=== PATIENT | female | born 1970 | race Caucasian/White ===

== ENCOUNTER 2024-11-21 13:12 | Outpatient (CLI) | payer OTHER, SELFPAY ==
--- NOTE | ~2024-11-21 | XR_ITS ---
Right Shoulder Technique: AP and scapular Y views were obtained. Clinical History: Pain Findings: No fracture or dislocation is seen. Osseous alignment is anatomic. The glenohumeral and acr omioclavicular joint spaces are preserved. Extensive spinal fixation hardware noted. Impression: Unremarkable right shoulder radiographs. Reviewed, dictated and finalized at [facility]. Impression: Unremarkable right shoulder radiographs.
--- OUTSIDE RECORDS SUMMARY | 2024-11-21 13:20 | XMS_ITS | Encounter Summary ---
Author Organization [facility] - [facility] Address [address] [place] [id number] Care Team Providers Care Manager Grant Name Role Phone Promise Stafford NP Primary Care Provider Ena Pantoja Primary Care Pr ovider Guillermo Merlos MD Primary Care Provider [phone] Encounter Details Date Type Department Care Team (Late st Contact Info) Description 06/07/2018 Abstract [facility] Medical Group Multispecialty Care - [facility] [address] [facility], [address] [place] [address] Britton Moseley MD Social History Tobacco Use Types Packs/Day Years Used Date Smoking Tobacco: Every Day Cigarettes 1.5 30 Smokeless Tobacco: Never Alcohol Use Standard Drinks/Week Comments No 0 (1 standard drink = 0.6 oz pur e alcohol) AUDIT-C Answer Date Recorded Frequency of Alcohol Consumption Never 06/07/2018 Average Number of Drinks Not on file 018 Frequency of Binge Drinking Not on file 03/2018 Comments Unknown Sex and Gender Information Value Date Recorded Sex Assigned at Not on file Legal Sex Female 8:55 PM CDT Gender Identity Not on file Sexual Orientation Not on file documented as of this encounter Functional Status documented as of this encounter Plan of Treatment Not on file documented as of this encounter Visit Diagnoses Not on filedocumented in this encounter Additional Health Concerns Infection Onset Date Last Indicated Resolved Time COVID-19 Rule Out 02/27/2021 02/27/2021 02/27/2021 6:44 AM CDT COVID-19 Rule Out 06/21/2024 06/21/2024 06/21/2024 8:17 AM 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
--- OUTSIDE RECORDS SUMMARY | 2024-11-21 13:20 | XMS_ITS | Encounter Summary ---
Author Organization [facility] Address [address] [place] [address] Care Team Providers Care Petroleum Geologist Name Role Phone Promise Stafford NP Primary Care Provider Ena Pantoja Primary Care Pr ovider Guillermo Merlos MD Primary Care Provider [phone] Encounter Details Date Type Department Care Team (Late st Contact Info) Description 08/04/2018 MyChart Message Enc [facility] Medical [facility] Family & Internal Medicine [address] [address] Promise Stafford, JAMARCUS Test Results Social History Tobacco Use Types Packs/Day Years Used Date Smoking Tobacco: Every Day Cigarettes 0.5 30 Smokeless Tobacco: Never Alcohol Use Standard [...] on file documented as of this encounter Plan of Treatment Not on file documented as of this encounter Visit Diagnoses Not on filedocumented in this encounter Additional Health Concerns Infection Onset Date Last Indicated Resolved Time COVID-19 Rule Out 02/27/2021 02/27/2021 02/27/2021 6:44 AM CDT COVID-19 Rule Out 06/21/2024 06/21/2024 06/21/2024 8:17 AM 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
--- OUTSIDE RECORDS SUMMARY | 2024-11-21 13:21 | XMS_ITS | Patient Health Record ---
Author Organization Formerly [facility] Address [address] [place] [address] Care Team Providers Care It Audit Manager Name Role Phone Guillermo Merlos Primary Care Provider Betina Mc Unavailable [phone] Shital Ramirez Unavailable [phone] Nick Gomez Unavailable [phone] Kiana Artis Unavailable [phone] Shanika Zimmerman Unavailable [phone] Allergies Allergen (clinical drug ingredient) Drug/Non Drug Allergy documented on EMR Reaction Allergy Type Onset Date Status tramadol Tramadol Unknown Drug Allergy Active Results Component Value Reference Range Notes HCV RNA by PCR, Qn Rfx Dona (Not yet reviewed by provider) Interpretation: Performing Lab:[employer], [address] [facility], Phone - [phone], Director - Gerardo Notes/Report: Hepatitis C Quantitation HCV Not Detected HCV log10 TNP Unable to calculate result since non-numeric result obtained for component test. Test Information: The quanti tative range of this assay is 15 IU/mL to 100 million IU/mL. HCV Genotype TNP Not indicated Lipid Panel* (Not yet review ed by provider) Interpretation: Performing Lab:[facility] [place], [address] [facility], Phone - [phone], Director - PhDVianey Notes/Report: Cholesterol, Total 257 100-199 mg/dL Triglycerides 88 0-149 mg/dL HDL Cholesterol 68 >39 mg/dL VLDL Cholesterol Ambrose 15 5-40 mg/dL LDL Chol Calc ([facility]) 174 0-99 mg/dL TSH Rfx on Abnormal to Free T4 (Not yet reviewed by provider) Interpretation: Performing Lab[facility] [address] [facility], Phone - [phone], Director - [facility] Notes/Report: TSH 2.940 0.450-4.500 uIU/mL CBC With Differential/Platel et* (Not yet reviewed by provider) Interpretation: Performing Lab:[facility] [address] [facility], Phone - [phone], Director - [facility] Notes/Report: WBC 5.8 3.4-10.8 x10E3/uL RBC 4.49 3.77-5.28 x10E6/uL Hemoglobin 13.6 11.1-15.9 g/dL Hematocrit 41.5 34.0-46.6 % MCV 92 79-97 fL MCH 30.3 26.6-33.0 pg MCHC 32.8 31.5-35.7 g/dL RDW 12.5 11.7-15.4 % Platelets 275 150-450 x10E3/uL Neutrophils 44 Not Estab. % Lymphs 43 Not Estab. % Monocytes 8 Not Estab. % Eos 4 Not Estab. % Basos 1 Not Estab. % Neutrophils (Absolute) 2.5 1.4-7.0 x10E3/uL Lymphs (Absolute) 2.5 0.7-3.1 x10E3/uL Monocytes(Absolute) 0.5 0.1-0.9 x10E3/uL Eos (Absolute) 0.2 0.0-0.4 x10E3/uL Baso (Absolute) 0.0 0.0-0.2 x10E3/uL Immature Granulocytes 0 Not Estab. % Immature Grans (Abs) 0.0 0.0-0.1 x10E3/uL CMP 14 Comprehensive Metabol ic Panel* (Not yet reviewed by provider) Interpretation: Performing Lab:[facility] [address] [facility], Phone - [phone], Director - [facility] Notes/Report: Glucose TNP Test not performed. Serum was in contact with cells when received which will make the result inaccurate. BUN 14 6-24 mg/dL Creatinine 0.68 0.57-1.00 mg/dL eGFR 105 >59 mL/min/1.73 BUN/Creatinine Ratio 21 9-23 Sodium 140 134-144 mmol/L Potassium TNP Test not performed. Serum was in contact with cells when received which will make the result inaccurate. Chloride 103 96-106 mmol/L Carbon Dioxide, Total 24 20-29 mmol/L Calcium 9.9 8.7-10.2 mg/dL Protein, Total 7.2 6.0-8.5 g/dL Albumin 4.4 3.8-4.9 g/dL Globulin, Total 2.8 1.5-4.5 g/dL Bilirubin, Total <0.2 0.0-1.2 mg/dL Alkaline Phosphatase 112 44-121 IU/L AST (SGOT) 32 0-40 IU/L ALT (SGPT) 22 0-32 IU/L 12 Panel Urine Drug Screen Reviewed date:07/01/2024 11:37:04 AM Interpretation: Performing Lab: Notes/Report: THC neg YESENIA neg MOP (OPI) neg AMP POS MET neg BAR neg BZO neg MDMA neg MTD neg OXY neg PCP neg BUP neg TSH Rfx on Abnormal to Free T4 Reviewed date:01/01/2024 04:01:15 PM Interpretation: Performing Lab:[facility] [place], [address] [facility], Phone - [phone], Director - [facility] Notes/Report: TSH 1.570 0.450-4.500 uIU/mL Request Problem TNP Please refer to the following specimen for additional lab results. TEST: [id number] HCV RNA by PCR, Qn Rfx Dona [id number] HIV Ab/p24 Ag with Reflex [id number] Hemoglobin A1c 787045 Hepatitis B Surf Ab Quant 247493 HBsAg Screen Specimen# [id number] CMP 14 Comprehensive Metabol ic Panel* Reviewed date:01/01/2024 04:01:15 PM Interpretation: Performing Lab:[facility] [place], [address] [employer] [employer], [place], Phone - [phone], Director - [facility] Notes/Report: Glucose 84 70-99 mg/dL BUN 11 6-24 mg/dL Creatinine 0.64 0.57-1.00 mg/dL eGFR 107 >59 mL/min/1.73 BUN/Creatinine Ratio 17 9-23 Sodium 138 134-144 mmol/L Potassium 4.4 3.5-5.2 mmol/L Chloride 98 96-106 mmol/L Carbon Dioxide, Total 26 20-29 mmol/L Calcium 10.1 8.7-10.2 mg/dL Protein, Total 7.5 6.0-8.5 g/dL Albumin 4.5 3.8-4.9 g/dL Globulin, Total 3.0 1.5-4.5 g/dL A/G Ratio 1.5 1.2-2.2 Bilirubin, Total 0.2 0.0-1.2 mg/dL Alkaline Phosphatase 125 44-121 IU/L AST (SGOT) 84 0-40 IU/L ALT (SGPT) 107 0-32 IU/L Lipid Panel* Reviewed date:01/01/2024 04:01:15 PM Interpretation: Performing Lab:[address], Phone - [phone], Director - [facility] Notes/Report: Cholesterol, Total 227 100-199 mg/dL Triglycerides 97 0-149 mg/dL HDL Cholesterol 55 >39 mg/dL VLDL Cholesterol Ambrose 17 5-40 mg/dL LDL Chol Calc ([facility]) 155 0-99 mg/dL Treponema pallidum Antibodie s Reviewed date:01/01/2024 04:01:15 PM Interpretation: Performing Lab:[address], Phone - [phone], Director - [facility] Notes/Report: Treponema pallidum Antibodies Non Reactive Non Reactive Hemoglobin A1c* Reviewed date:01/01/2024 04:01:16 PM Interpretation: Performing Lab:[address], Phone - [phone], Director - [facility] Notes/Report: Test(s) 217492-Zpvxytwzj C Genotype was developed and its performance characteristics determined by [facility]. It has not been cleared or approved by the Food and Drug Administration. Hemoglobin A1c 5.6 4.8-5.6 % . Prediabetes: 5.7 - 6.4 Diabetes: >6.4 Glycemic control for adults with diabetes: <7.0 Lipid Panel* Reviewed date:01/01/2024 04:01:16 PM Interpretation: Performing Lab:[facility], Phone - [phone], Director - [facility] Notes/Report: Test(s) 289917-Oifsfyola C Genotype was developed and its performance characteristics determined by [facility]. It has not been cleared or approved by the Food and Drug Administration. Cholesterol, Total TNP Please refer to the following specimen for additional lab results. Specimen# [id number] Triglycerides TNP Test not perfo rmed HDL Cholesterol TNP Test not per formed VLDL Cholesterol Ambrose TNP Unable to calculate result since non-numeric result obtained for component test. Treponema pallidum Antibodie s Reviewed date:01/01/2024 04:01:16 PM Interpretation: Performing Lab:[facility], Phone - [phone], Director - [facility] Notes/Report: Test(s) 809753-Xgeqcdwyp C Genotype was developed and its performance characteristics determined by [facility]. It has not been cleared or approved by the Food and Drug Administration. Treponema pallidum Antibodies TNP Please refer to the following specimen for additional lab results. Specimen# [id number] HIV Screen *HIV 1, 2 Ab, p24 Ag (201562) Reviewed date:01/01/2024 04:01:16 PM Interpretation: Performing Lab:[address], Phone - [phone], Director - [facility] Notes/Report: Test(s) 952077-Fxfzveycy C Genotype was developed and its performance characteristics determined by [facility]. It has not been cleared or approved by the Food and Drug Administration. HIV Ab/p24 Ag Screen Non Reactive Non Reactive HIV Negative HIV-1/HIV-2 antibodies and HIV-1 p24 antigen were NOT detected. There is no laboratory evidence of HIV infection. HCV RNA by PCR, Qn Rfx Dona Reviewed date:01/01/2024 04:01:16 PM Interpretation: Performing Lab:[facility], Phone - [phone], Director - [facility] Notes/Report: Test(s) 108532-Yglvrmhto C Genotype was developed and its performance characteristics determined by [facility]. It has not been cleared or approved by the Food and Drug Administration. Test(s) 379145-Wenqmnslv C Genotype was developed and its performance characteristics determined by [facility]. It has not been cleared or approved by the Food and Drug Administration. Hepatitis C Quantitation [id number] HCV log10 6.690 Test Information: The quanti tative range of this assay is 15 IU/mL to 100 million IU/mL. HCV Genotype To be performed on this specimen. Hepatitis C Genotype 1a Hepatitis B Surf Ab Quant* Reviewed date:01/01/2024 04:01:16 PM Interpretation: Performing Lab:[facility] [address] [place] [address], Phone - [phone], Director - [facility] Notes/Report: Test(s) 601536-Blkumdgnu C Genotype was developed and its performance characteristics determined by [facility]. It has not been cleared or approved by the Food and Drug Administration. Hepatitis B Surf Ab Quant <3.1 Immuni ty>9.9 mIU/mL Status of Immunity Anti-HBs Level Inconsistent with Immunity 0.0 - 9.9 Consistent with Immunity >9.9 Effective January 28, 2024 the reference interval will be changing to: Immunity >10 Hepatitis B Surface Antigen (HBsAg Screen) Reviewed date:01/01/2024 04:01:16 PM Interpretation: Performing Lab:[facility], Phone - [phone], Director - [facility] Notes/Report: Test(s) 719244-Dqxgvvbte C Genotype was developed and its performance characteristics determined by [facility]. It has not been cleared or approved by the Food and Drug Administration. HBsAg Screen Negative Negative Request Problem TNP Please refer to the following specimen for additional lab results. TEST: 824140 Comp. Metabolic Panel (14) 806974 Lipid Panel 115372 Treponema pallidum Antibodies 027900 TSH Rfx on Abnormal to Free T4 Specimen# [id number] CMP 14 Comprehensive Metabol ic Panel* Reviewed date:01/01/2024 04:01:16 PM Interpretation: Performing Lab[facility] [address] [facility], Phone - [phone], Director - [facility] Notes/Report: Test(s) 040080-Swfotlkkh C Genotype was developed and its performance characteristics determined by [facility]. It has not been cleared or approved by the Food and Drug Administration. Glucose TNP Please refer to the following specimen for additional lab results. Specimen# [id number] BUN TNP Test not perfor med Creatinine TNP Test not perfor med Sodium TNP Test not perfor med Potassium TNP Test not perfor med Chloride TNP Test not perfor med Carbon Dioxide, Total TNP Test n ot performed Calcium TNP Test not perfor med Protein, Total TNP Test not perf ormed Albumin TNP Test not perfor med Bilirubin, Total TNP Test not pe rformed Alkaline Phosphatase TNP Test no t performed AST (SGOT) TNP Test not perfor med ALT (SGPT) TNP Test not perfor med TSH Rfx on Abnormal to Free T4 Reviewed date:01/01/2024 04:01:15 PM Interpretation: Performing Lab[facility], Phone - [phone], Director - [facility] Notes/Report: Test(s) 024255-Phritdaie C Genotype was developed and its performance characteristics determined by [facility]. It has not been cleared or approved by the Food and Drug Administration. TSH TNP Please refer to the following specimen for additional lab results. Specimen# [id number] Hepatic Function Panel (7)* Reviewed date:03/06/2024 03:13:30 PM Interpretation: Performing Lab:[facility], Phone - [phone], Director - [facility] Notes/Report: Protein, Total 7.9 6.0-8.5 g/dL Albumin 4.6 3.8-4.9 g/dL Bilirubin, Total 0.5 0.0-1.2 mg/dL Bilirubin, Direct 0.15 0.00-0.40 mg/dL Alkaline Phosphatase 139 44-121 IU/L AST (SGOT) 156 0-40 IU/L ALT (SGPT) 195 0-32 IU/L Lipid Panel* Reviewed date:03/06/2024 03:13:06 PM Interpretation: Performing Lab:[facility], Phone - [phone], Director - Gerardo Notes/Report: Cholesterol, Total 178 100-199 mg/dL Triglycerides 67 0-149 mg/dL HDL Cholesterol 58 >39 mg/dL VLDL Cholesterol Ambrose 13 5-40 mg/dL LDL Chol Calc ([facility]) 107 0-99 mg/dL Pap IG Aptima HPV Age Gdln, +CtNgTv (348703) Reviewed date:02/14/2024 08:08:27 AM Interpretation:Abnormal Performing Lab:[facility], [address] [facility], Phone - [phone], Director - Marcelino Notes/Report: Clinical Information:[id number] Clinical Information:[id number] Age Gdln ACOG Testing 30-65 DIAGNOSIS: NEGATIVE FOR INTRAEPITHELIAL LESION OR MALIGNANCY. CELLULAR CHANGES ASSOCIATED WITH INFLAMMATION ARE PRESENT. Specimen adequacy: Satisfactory for evaluation. Endocervical and/or squamous metaplastic cells (endocervical component) are present. Clinician provided ICD10: Z0 1.419 Performed by: India Chavez, [employer] Stringer (ASCP) . . Note: The Pap smear is a screening test designed to aid in the detection of premalignant and malignant conditions of the uterine cervix. It is not a diagnostic procedure and should not be used as the sole means of detecting cervical cancer. Both false-positive and false-negative reports do occur. . Test Methodology: This liquid based ThinPrep(R) pap test was screened with the use of an image guided system. HPV Aptima Negative Negative This nucleic acid amplification test detects fourteen high-risk HPV types (16,18,31,33,35,39,45,51, 52,56,58,59,66,68) without differentiation. HPV Genotype Reflex Criteria not met, HPV Genotype not performed. Chlamydia, Nuc. Acid Amp Negative Negative Gonococcus, Nuc. 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 Clinical Notes [facility], [address], [place] [address], , Referral Priority Routine Medications Medication SIG (Take, Route, Frequency, Duration) Notes Start Date End Date Status Citalopram Hydrobromide 20 MG 1 tablet Orally Once a day for 30 days Active Vyvanse 70 MG 1 capsule in the mor citlaly Orally Once a day for 30 days 11/20/2024 Active Naproxen 500 MG 1 tablet with food or milk as needed Orally every 12 hrs for 30 days As needed joint pain 11/07/2024 Active Social History Tobacco Use: Social History Observation Description Date Details (start date - stop date) Current Smoker NA - NA Sex Assigned At : Social History Observation Description Sex Assigned At Female Dont use, Tobacco Use/Smoking Question Answer Notes Are you a current every day smoker Additional Findings: Tobacco User Moderate cigar ette smoker (10-19 cigs/day) Tobacco Control (Standard) Question Answer Notes Tobacco use: Current smoker How often do you smoke cigarettes? Every day How many cigarettes a day do you smoke? 6-10 Section Notes: Reviewed PDMP, no concerns n oted. Reviewed PDMP, no concerns n oted. Reviewed PDMP, no concerns n oted. Reviewed PDMP, no concerns n oted. Reviewed PDMP, no concerns n oted. Reviewed PDMP, no concerns n oted. Reviewed PDMP, no concerns n oted. Reviewed PDMP, no concerns n oted. Reviewed PDMP, no concerns n oted. Reviewed PDMP, no concerns n oted. Reviewed PDMP, no concerns n oted. Reviewed PDMP, no concerns n oted. Reviewed PDMP, no concerns noted. Reviewed PDMP, no concerns noted. Reviewed PDMP, no concerns n oted. Reviewed PDMP, no concerns n oted. Reviewed PDMP, no concerns n oted. Problems Problem Type SNOMED Code ICD Code Onset Dates Problem Status W/U Status Risk Notes Problem Tobacco user (289759227) Nicotine dependence, unspecified, uncomplicated (F17.200) Active confirmed Problem Borderline personality disorder (34606490) Borderline personality disorder (F60.3) Active confirmed Problem 79730075 Mood disorder (F39) 2016 Active confirmed r/o bipolar disorder Problem 69648175 Anxiety (F41.9) Active confirmed Problem Attention deficit disorder (38717396) ADD (attention deficit disorder) (F90.0) Active confirmed Problem Hepatitis C (64052741) Hepatitis C (B19.20) Active confirmed Problem Thyroid nodule (386438932) Thyroid nodule (E04.1) 2023 Active confirmed Problem Recurrent major depression (06130883) Major depression, recurrent (F33.9) Active confirmed Problem 63810701 Major depressive disorder with single episode, remission status unspecified (F32.9) 2016 Active confirmed Problem 03429154 Bipolar affectiv e disorder, remission status unspecified (F31.9) 2016 Active confirmed Problem 84768115 Situational depression (F43.21) Active confirmed Problem 241347043 ADD (attention deficit disorder) (F98.8) Active confirmed prior diagonsis from history Problem Hypercholesterolemia (00638331) Hypercholesterolem ia (E78.00) Active confirmed Problem Carpal tunnel syndrome (93410470) Carpal tunnel syndrome on both sides (G56.03) Active confirmed Vital Signs Heart Rate 93 /min 11/07/2024 Temperature 98.2 degrees Fahrenheit 11/07/2024 Respiratory Rate 16 /min 11/07/2024 Oximetry 98 % 11/07/2024 Blood pressure diastolic 68 mm Hg 11/07/2024 Height 62 in 11/07/2024 Blood pressure systolic 112 mm Hg 11/07/2024 Weight 135.6 lbs 11/07/2024 BMI 24.8 kg/m2 11/07/2024 Encounters Encounter Location Date Provider Diagnosis [address] [place] [address] 11/10/2024 Guillermo Merlos [facility] [place] [address] 12/21/2023 Guillermo Merlos Thyroid nodule E04.1 ; Hepatitis C B19.20 ; Right shoulder pain M25.511 ; Hypercholesterolemia E78.00 ; Exposure to potential infection Z20.9 ; Menopause Z78.0 ; Tinea B35.9 ; Onychocryptosis L60.0 ; Colon polyps K63.5 ; Breast cancer screening Z12.39 ; Cervical cancer screening Z12.4 ; Metabolic syndrome E88.810 and Carpal tunnel syndrome on both sides G56.03 [place] [address] [place] [address] 01/04/2024 Guillermo Merlos Hypercholesterolemia E78.00 and Hepatitis C B19.[address] [place] [address] 01/10/2024 Betina Mc Major depression, recurrent F33.9 ; Borderline personality disorder F60.3 ; Anxiety F41.9 and ADD (attention deficit disorder) F90.0 [place] [address] [place] [address] 02/01/2024 Guillermo Merlos Hypercholesterolemia E78.00 ; Hepatitis C B19.20 and Thyroid nodule E04.1 [place] [address] [place] [address] 02/11/2024 Shanika Zimmerman Well woman exam with routine gynecological exam Z01.419 [place] [address] [place] [address] 02/11/2024 Shital Ramirez [place] [address] [place] [address] 05/20/2024 Betina Mc Major depression, recurrent F33.9 ; Borderline personality disorder F60.3 ; Anxiety F41.9 and ADD (attention deficit disorder) F90.0 [place] [address] [place] [address] 07/01/2024 Betina Mc Major depression, recurrent F33.9 ; Borderline personality disorder F60.3 ; Anxiety F41.9 and ADD (attention deficit disorder) F90.0 [facility] [place] [address] 10/21/2024 Betina Mc Major depression, recurrent F33.9 ; Borderline personality disorder F60.3 ; Anxiety F41.9 and ADD (attention deficit disorder) F90.0 [facility] [address] [place] [address] 11/07/2024 Guillermogustavo Colonner Lateral epicondyliti s of right elbow M77.11 ; Right shoulder pain M25.511 ; Thyroid nodule E04.1 ; Breast cancer screening Z12.39 ; Hepatitis C B19.20 ; Hypercholesterolemia E78.00 and Patellofemoral arthralgia of right knee M25.[address] [place] [address] 11/28/2023 Betina Mc [address] [address] 12/25/2023 Betina Mc ADD (attention defic it disorder) F90.[address] [address] 02/07/2024 Nick Gomez ADD (attention defic it disorder) F90.[address] [place] [address] 02/14/2024 Shanika Zimmerman Trichomoniasis A59.[address] [place] [address] 03/04/2024 Nick Gomez ADD (attention defic it disorder) F90.0 and Major depression, recurrent F33.[address] [address] 04/02/2024 Kiana Artis Major depression, recurrent F33.9 and ADD (attention deficit disorder) F90.0 [facility] [address] [address] 04/29/2024 Betina Mc Major depression, recurrent F33.9 and ADD (attention deficit disorder) F90.[address] [address] 05/15/2024 [facility] [address] [address] 06/06/2024 [place] [address] [address] 06/24/2024 Betina Mc Major depression, recurrent F33.9 and ADD (attention deficit disorder) F90.[address] [address] 08/04/2024 [facility] [address] [place] [address] 08/14/2024 Betina Mc ADD (attention defic it disorder) F90.0 [facility] [address] [place] [address] 09/11/2024 [facility] [address] [place] [address] 09/11/2024 Betina Mc ADD (attention defic it disorder) F90.0 and Major depression, recurrent F33.[address] [address] 10/14/2024 Betina Mc ADD (attention defic it disorder) F90.[address] [address] 10/22/2024 Betina Mc ADD (attention defic it disorder) F90.[address] [address] 11/20/2024 Betina Mc ADD (attention defic it disorder) F90.0 Assessments Encounter Date Diagnosis (ICD Code) Assessment Notes Treatment Notes Treatment Clinical Notes Section Notes 11/07/2024 Lateral epicondyliti s of right elbow (ICD-10 - M77.11) stretches, heat, wrap, nsaid 11/07/2024 Right shoulder pain (ICD-10 - M25.511) discussed yo chi for chronic pain 11/20/2024 ADD (attention defic it disorder) (ICD-10 - F90.0) 01/10/2024 Major depression, recurrent (ICD-10 - F33.9) Client reports has been given GI referral- client to make GI provider aware of current MH regimen to see if they suggest any changes while doing treatment. Client v/u and agreement to this plan. Discussed possible decrease in both medications may be warranted. Client reports understanding. 12/25/2023 ADD (attention defic it disorder) (ICD-10 - F90.0) 04/02/2024 Major depression, recurrent (ICD-10 - F33.9) 05/20/2024 Major depression, recurrent (ICD-10 - F33.9) Changing from Lexapro to Celexa- discussed to decrease lexapro by taking half a tablet for 3 days then start Celexa at half a tablet for 2 days then increase to a full tablet. 08/14/2024 ADD (attention defic it disorder) (ICD-10 - F90.0) 09/11/2024 ADD (attention defic it disorder) (ICD-10 - F90.0) 10/14/2024 ADD (attention defic it disorder) (ICD-10 - F90.0) 10/21/2024 Major depression, recurrent (ICD-10 - F33.9) [place] agreement to continue current regimen. 10/22/2024 ADD (attention defic it disorder) (ICD-10 - F90.0) 12/21/2023 Hepatitis C (ICD-10 - B19.20) 12/21/2023 Thyroid nodule (ICD- 10 - E04.1) 01/04/2024 Hepatitis C (ICD-10 - B19.20) 01/04/2024 Hypercholesterolemia (ICD-10 - E78.00) 02/14/2024 Trichomoniasis (ICD- 10 - A59.9) 03/04/2024 ADD (attention defic it disorder) (ICD-10 - F90.0) 07/01/2024 Major depression, recurrent (ICD-10 - F33.9) Changing from Lexapro to Celexa- discussed to decrease lexapro by taking half a tablet for 3 days then start Celexa at half a tablet for 2 days then increase to a full tablet. 06/24/2024 Major depression, recurrent (ICD-10 - F33.9) 04/29/2024 Major depression, recurrent (ICD-10 - F33.9) 02/11/2024 Well woman exam with routine gynecological exam (ICD-10 - Z01.419) 02/07/2024 ADD (attention defic it disorder) (ICD-10 - F90.0) 02/01/2024 Hepatitis C (ICD-10 - B19.20) 02/01/2024 Hypercholesterolemia (ICD-10 - E78.00) 02/01/2024 Thyroid nodule (ICD- 10 - E04.1) 04/29/2024 ADD (attention defic it disorder) (ICD-10 - F90.0) 06/24/2024 ADD (attention defic it disorder) (ICD-10 - F90.0) 07/01/2024 Borderline personali ty disorder (ICD-10 - F60.3) Continue counseling 11/07/2024 Thyroid nodule (ICD- 10 - E04.1) 03/04/2024 Major depression, recurrent (ICD-10 - F33.9) 04/02/2024 ADD (attention defic it disorder) (ICD-10 - F90.0) 12/21/2023 Right shoulder pain (ICD-10 - M25.511) 10/21/2024 Borderline personali ty disorder (ICD-10 - F60.3) Continue counseling 09/11/2024 Major depression, recurrent (ICD-10 - F33.9) 05/20/2024 Borderline personali ty disorder (ICD-10 - F60.3) Continue counseling 01/10/2024 Borderline personali ty disorder (ICD-10 - F60.3) Continue counseling 01/10/2024 Anxiety (ICD-10 - F41.9) Continue lexapro, client reports coping well, encouraged counseling 11/07/2024 Breast cancer screening (ICD-10 - Z12.39) 05/20/2024 Anxiety (ICD-10 - F41.9) Starting Celexa, client reports coping well, encouraged counseling 10/21/2024 Anxiety (ICD-10 - F41.9) Encouraged counseling Continue coping mechanisms 12/21/2023 Hypercholesterolemia (ICD-10 - E78.00) 07/01/2024 Anxiety (ICD-10 - F41.9) Encouraged counseling Continue coping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
--- OUTSIDE RECORDS SUMMARY | 2024-11-21 13:21 | XMS_ITS ---
Author Organization [facility] Address [address] [place] [address] Care Team Providers Care Broadcast News Producer Name Role Phone Guillermo Merlos Primary Care Provider Betina Mc [phone] REASON FOR VISIT refills Medications Medication SIG (Take, Route, Frequency, Duration) Notes Start Date End Date Status Vyvanse 70 MG 1 capsule in the mor citlaly Orally Once a day for 30 days 11/20/2024 Active Social History Sex Assigned At : Social History Observation Description Sex Assigned At Female Encounters Encounter Location Date Provider Diagnosis [address] [address] 11/20/2024 Betina Mc ADD (attention deficit disorder) F90.0 Assessments Encounter Date Diagnosis (ICD Code) Assessment Notes Treatment Notes Treatment Clinical Notes Section Notes 11/20/2024 ADD (attention deficit disorder) (ICD-10 - F90.0) Plan Of Treatment Medication Medication Name Sig Start Date Stop Date Notes Vyvanse 70 MG 1 capsule in the mor citlaly Orally Once a day for 30 days 11/20/2024 Progress Notes * Todd HENNINGOB: 3 (53 yo F)Acc No.[id number]:11/20/2024 Patient: Radha Brandy GARCIA :1970 A ge:53 Y S ex:Female Address:[address] [place] [address], [address], [address] * Refills Refill Vyvanse Capsule, 70 MG, Orally, 30 Capsule, 1 capsule in the morning, Once a day, 30 days, Refills=0 * true * Date: Generated for Kim gamez/Sarika/Amarjit on: 0 11/21/2024 01:20 PM CDT
--- OUTSIDE RECORDS SUMMARY | 2024-11-21 13:21 | XMS_ITS | Clinical Summary ---
Author Organization [facility] Address [address] [place] [address] Care Team Providers Care Health Evaluator Name Role Phone Guillermo Merlos MD Primary Care Provider Allergies No known active allergies Medications citalopram (CELEXA) 40 MG tablet Take 0.5 tablets (20 mg total) by mouth daily. 05/20/20 24 Active VYVANSE 70 MG capsule Take 1 capsule (70 mg total) by mouth every morning. 10/24/19 25 Active hydrOXYzine 25 MG tablet Take 1 tablet (25 mg total) by mouth nightly as needed for Itching. 15 tablet 03/07/20 21 025 Discontinued oxyCODONE immediate release 5 MG immediate release tabletIndications: Acute Pain < 7 Day Supply Take 1 tablet (5 mg total) by mouth every 8 (eight) hours as needed. Indications : Acute Pain < 7 Day Supply 10 tablet 03/07/20 21 025 Discontinued ondansetron 4 MG disintegrating tablet Take 1 tablet (4 mg total) by mouth every 8 (eight) hours as needed for Nausea. 20 tablet 03/07/20 21 025 Discontinued famotidine (PEPCID) 20 MG tablet Take 1 tablet (20 mg total) by mouth 2 (two) times daily. 20 tablet 06/21/20 24 025 Discontinued traMADol (ULTRAM) 50 MG tabletIndications: Acute Pain < 7 Day Supply Take 1 tablet (50 mg total) by mouth every 6 (six) hours as needed. Indications : Acute Pain < 7 Day Supply 20 tablet 06/21/20 24 025 Discontinued amoxicillin (AMOXIL) 500 MG tablet Take 1 tablet (500 mg total) by mouth 2 (two) times daily for 10 days. 20 tablet 11/01/19 25 025 Active Problems Problem Noted Date Diagnosed Date Abnormal liver function tests 02/27/2021 Abnormal LFTs 02/27/2021 S/P carpal tunnel release 10/18/2018 Carpal tunnel syndrome of left wrist 10/18/2018 Other cervical disc degenera tion, unspecified cervical region 10/18/2018 Foraminal stenosis of cervical region 10/18/2018 Acute upper respiratory infection 08/06/2018 Carpal tunnel syndrome, bilateral 06/04/2018 Chronic pain of both upper extremities 8 Fatigue 04/09/2018 Menopause syndrome 03/22/2018 Thoracic back pain 11/02/2016 Anxiety 08/24/2016 Attention deficit hyperactivity disorder (ADHD) 08/24/2016 Neck pain 08/24/2016 Pain in joint 08/24/2016 Tobacco abuse counseling 08/24/2016 Encounters Date Type Department Care Team Description 10/31/2024 3:49 AM CDT - 10/31/2024 4:08 AM CDT Emergency [facility] Emergency Room [address] [place] [address] Dariuzs Long MD Dental Pain Discharge Disposition: Home or Self Care (Routine Discharge) 10/31/2024 Travel from Last 3 Months Family History Medical History Relation Comments Alcohol/Drug Brother 1 Depression Brother 1 Arthritis Brother 2 Alcohol/Drug Father Depression Father Clotting Disorder Mother Thyroid Disease Mother Relation Status Comments Brother 1 Alive Brother 2 Alive Father Mother Alive Social History Tobacco Use Types Packs/Day Years Used Date Smoking Tobacco: Every Day Cigarettes 0.5 31 Smokeless Tobacco: Never Tobacco Cessation:Ready to Q uit: No; Counseling Given: Yes Comments:a little less than a half a pack Alcohol Use Standard Drinks/Week Comments No 0 (1 standard drink = 0.6 oz pur e alcohol) AUDIT-C Answer Date Recorded Frequency of Alcohol Consumption Never 06/07/2018 Average Number of Drinks Not on file 018 Frequency of Binge Drinking Not on file 03/2018 Comments No Sex and Gender Information Value Date Recorded Sex Assigned at Not on file Legal Sex Female 8:55 PM CDT Gender Identity Not on file Sexual Orientation Not on file Last Filed Vital Signs Vital Sign Reading Time Taken Comments Blood Pressure 139/81 10/31/2024 3:51 AM CDT Pulse 89 10/31/2024 3:51 AM CDT Temperature 36.2 C (97.2 F) 10/31/2024 3:51 AM CDT Respiratory Rate 18 10/31/2024 3:51 AM CDT Oxygen Saturation 97% 10/31/2024 3:51 AM CDT Inhaled Oxygen Concentration - - Weight 61.8 kg (136 lb 3.9 oz) 10/31/2024 3:51 A M CDT Height 157.5 cm (5' 2 ) 10/31/2024 3:51 AM CDT Body Mass Index 24.92 10/31/2024 3:51 AM CDT Plan of Treatment Health Maintenance Due Date Last Done Comments Cervical Cancer Screening Pa p Smear (Age 30 to 64) Every 3 Years 1972 Colorectal Cancer Screening Colonoscopy (10 Years) 1970 Annual Physical 12/01/1975 Hepatitis B Vaccines (1 of 3 - 19+ 3-dose series) 12/01/1991 Pneumococcal Vaccine: 50+ Years (1 of 2 - PCV) 12/01/1991 Cervical Cancer Screening Pa p with HPV Testing (Age 30 to 64) Every 5 Years 2002 Cervical Cancer Screening wi th HPV 2002 DTaP, Tdap and Td Vaccines ( 1 - Tdap) 07/31/2015 07/30/2015 Mammogram Screening 05/02/2020 05/02/2018, 10/17/2016 Zoster Vaccines (1 of 2) 2022 COVID-19 Vaccine ( - 2023-2 5 season) 2024 Hepatitis C Completed 02/27/2021 Meningococcal B Vaccine Aged Out No l onger eligible based on patient's age to complete this topic Meningococcal Vaccine Aged Out No diana todd eligible based on patient's age to complete this topic RSV Immunizations Under 20 Months Aged Out No longer eligible b ased on patient's age to complete this topic Goals Goal Patient Goal Type Associated Problems Recent Progress Patient-Stated? Author Family - family caregiver with be involved in care transitions and discharge planning General No Delores [employer] Procedure Name Priority Date/Time Associated Diagnosis Comments HEPATITIS PANEL,ACUTE Routine 02/27/2021 5:34 AM CDT MG SCREENING W EBER SYLVIE DIGI Routine 05/02/2018 2:51 PM CDT from Last 3 Months or Most Recently Relevant to Health Maintenance Results * (ABNORMAL) HEPATITIS PANEL,ACUTE (02/27/2021 5:34 AM CDT) HEPATITIS B SURFACE AG NON-REACT PEPE NON-REACT PEPE 02/27/2021 7:20 AM CDT [facility] Comment:HBsAg NOT DETECTED. HEP B CORE IGM NON-REACT PEPE NON-REACT PEPE 02/27/2021 7:20 AM CDT [facility] Comment: IgM ANTI HBc NOT DETECTED. DOES NOT EXCLUDE THE POSSIBILITY OF EXPOSURE TO OR INFECTION WITH HBV. NO RETEST REQUIRED. HIGH DOSES OF BIOTIN MAY INTERFERE WITH THIS TEST RESULT. CORRELATION TO CLINICAL HISTORY AND PRESENTATION RECOMMENDED. HAV IGM NON-REACT PEPE NON-REACT PEPE 02/27/2021 7:20 AM CDT [facility] Comment: IgM ANTI HAV NOT DETECTED. DOES NOT EXCLUDE THE POSSIBILITY OF EXPOSURE TO OR INFECTION WITH HAV. LEVELS OF IgM ANTI HAV MAY BE BELOW THE CUTOFF IN EARLY INFECTION. HEPATITIS C AB REACTIVE( A) NON-REACT PEPE 02/27/2021 7:20 AM CDT [facility] Comment: PRESUMPTIVE EVIDENCE OF ANTIBODIES TO HCV. CONSIDER ORDERING HCV RNA DETECTION AND QUANTIFICATION BY RT-PCR ANALYSIS ON A NEW SPECIMEN. 02/27/2021 5:34 AM CDT Surinder Fisher MD LABORATORY Final Result [facility] [address] [place] [address], [id number] * MG SCREENING W EBER SYLVIE DIGI (05/02/2018 2:51 PM CDT) Anatomical Region Laterality Modality Breast Bilateral Mammography 05/02/2018 2:51 PM CDT 05/02/2018 2:51 PM CDT Narrative 05/02/2018 2:55 PM CDT SARA HENNING ADMIT/SERVICE DATE: 05/02/18 ACCT: [id number] DISCHARGE DATE: : 1970 SEX: F ORD SITE: [facility] PT TYPE: REG CLI ORDERING MD: PROMISE VALENZUELA NP STUDY DATE REPORT # ORDER # EXT ORDER ID 05/02/18 [id number] PROC CODE: [id number] PROCEDURE DESCRIPTION: MG SCREEN DIG IKE W EBER BI EXAMINATION: MG SCREEN DIG IKE W EBER BI WITH TOMOSYNTHESIS AND COMPUTER-AIDED DETECTION (CAD) DATE: 05/02/2018 10:52 AM COMPARISON STUDIES: 09/29/2016. CLINICAL HISTORY: OTHER - SCREENING . SCREENING, NO COMPLAINTS. FAMILY HISTORY OF BREAST CA: GRANDMOTHER AND AUNT. FINDINGS: BILATERAL CC, MLO, 2-D AND 3-D ACQUISITIONS. HETEROGENEOUSLY DENSE RESIDUAL FIBROGLANDULAR PARENCHYMA UNFORTUNATELY COULD OBSCURE UNDERLYING LESIONS. SIMILAR IN APPEARANCE AND DISTRIBUTION TO THE PREVIOUS EXAMS. NO EVIDENCE OF DOMINANT MASS, ARCHITECTURAL DISTORTION, SKIN THICKENING, NIPPLE RETRACTION OR SUSPICIOUS CLUSTERS OF MICROCALCIFICATIONS. BENIGN CALCIFICATIONS REDEMONSTRATED. . IMPRESSION: 1. BI-RADS CATEGORY 2 - BENIGN FINDINGS. ANNUAL SCREENING MAMMOGRAPHY RECOMMENDED A) A NEGATIVE REPORT SHOULD NOT DELAY A BIOPSY IF A DOMINANT OR CLINICALLY SUSPICIOUS MASS IS PRESENT. B) ADENOSIS AND DENSE BREASTS MAY OBSCURE AN UNDERLYING NEOPLASM. C) STUDY INTERPRETED WITH COMPUTER AIDED DETECTION. MQSA BI-RADS CATEGORIES: CATEGORY 0 - NEEDS ADDITIONAL IMAGING EVALUATION. CATEGORY 1 - NEGATIVE. CATEGORY 2 - BENIGN FINDINGS. CATEGORY 3 - PROBABLY BENIGN FINDINGS, BUT SHORT INTERVAL FOLLOW-UP IS RECOMMENDED. CATEGORY 4 - SUSPICIOUS ABNORMALITY AND BIOPSY SHOULD BE CONSIDERED THOUGH THE LESION MAY WELL BE BENIGN. CATEGORY 5 - HIGHLY SUGGESTIVE OF MALIGNANCY AND APPROPRIATE ACTION SHOULD BE TAKEN. VOICE RECOGNITION SOFTWARE UTILIZED. ELECTRONICALLY SIGNED BY AMAIRANI ZIMMERMAN MD ON 05/02/2018 2:52 PM Procedure Note Dyana Melton, - 06/01/2018 SARA HENNING ADMIT/SERVICE DATE:05/02/18 ACCT: [id number] DISCHARGE DATE: : 1970 SEX: F [facility]D S[facility]: [facility] PT TYPE: REG CLI ORDERING MD:PROMISE VALENZUELA NP STUDY DATE REPORT # ORDER # EXT ORDER ID 05/02/18 [id number] PROC CODE: [id number] PROCEDURE DESCRIPTION: MG SCREEN DIG IKE W EBER BI EXAMINATION: MG SCREEN DIG IKE W EBER BI WITH TOMOSYNTHESIS ANDCOMPUTER-AIDED DETECTION (CAD) DATE: 05/02/2018 10:52 AM COMPARISON STUDIES: 09/29/2016. CLINICAL HISTORY: OTHER - SCREENING . SCREENING, NO COMPLAINTS. FAMILYHISTORY OF BREAST CA: GRANDMOTHER AND AUNT. FINDINGS: BILATERAL CC, MLO, 2-D AND 3-D ACQUISITIONS. HETEROGENEOUSLY DENSERESIDUAL FIBROGLANDULAR PARENCHYMA UNFORTUNATELY COULD OBSCURE UNDERLYING LESIONS. SIMILAR INAPPEARANCE AND DISTRIBUTION TO THE PREVIOUS EXAMS. NO EVIDENCE OF DOMINANT MASS, ARCHITECTURALDISTORTION, SKIN THICKENING, NIPPLE RETRACTION OR SUSPICIOUS CLUSTERS OF MICROCALCIFICATIONS. BENIGNCALCIFICATIONS REDEMONSTRATED. . IMPRESSION: 1. BI-RADS CATEGORY 2 - BENIGN FINDINGS. ANNUAL SCREENING MAMMOGRAPHY RECOMMENDED A) A NEGATIVE REPORT SHOULD NOT DELAY A BIOPSY IF A DOMINANT OR CLINICALLY SUSPICIOUS MASS IS PRESENT. B) ADENOSIS AND DENSE BREASTS MAY OBSCURE AN UNDERLYING NEOPLASM. C) STUDY INTERPRETED WITH COMPUTER AIDED DETECTION. MQSA BI-RADS CATEGORIES: CATEGORY 0 - NEEDS ADDITIONAL IMAGING EVALUATION. CATEGORY 1 - NEGATIVE. CATEGORY 2 - BENIGN FINDINGS. CATEGORY 3 - PROBABLY BENIGN FINDINGS, BUT SHORT INTERVAL FOLLOW-UP IS RECOMMENDED. CATEGORY 4 - SUSPICIOUS ABNORMALITY AND BIOPSY SHOULD BE CONSIDERED THOUGH THE LESION MAY WELL BE BENIGN. CATEGORY 5 - HIGHLY SUGGESTIVE OF MALIGNANCY AND APPROPRIATE ACTION SHOULD BE TAKEN. VOICE RECOGNITION SOFTWARE UTILIZED. ELECTRONICALLY SIGNED BY AMAIRANI ZIMMERMAN MD ON 05/02/2018 2:52 PM Promise Valenzuela NP MAMMO Final Result from Last 3 Months or Most Recently Relevant to Health Maintenance Insurance [employer] Advance Directives * Full Code (Latest Code Status on File) Date Activated Date Inactivated Comments 02/27/2021 4:38 AM 03/07/2021 4:11 PM * Full Code Date Activated Date Inactivated Comments 10/15/2018 10:00 AM 10/15/2018 2:43 PM Care Teams Health Evaluator Relationship Specialty Start Date End Date Guillermo Merlos MD [facility] [address] [place] [id number] PCP - General INTERNAL MEDICINE 12/28/23
--- OUTSIDE RECORDS SUMMARY | 2024-11-21 13:21 | XMS_ITS | Data Portability ---
Author Organization [facility] Address [address] [place] [address] Assessment No assessment recorded. Plan of Treatment Reminders Order Date Submit Date Provider Last Modified By Organization Details Last Modified Time Details Appointments None recorded. Lab unlisted lab - compliance drug analysis, ur 2015 Patricia [facility], [address] [place] [address], [address], [place], [address], 6 15:11:22 Referral laryngolog y referral - Please call patient to schedule 2015 Patricia [id number] Abdon De La Rosa[address], [address], 7 16:58:46 orthopedic referral 2015 016 [facility] Not available 7 21:44:56 Procedures None recorded. Surgeries None recorded. Imaging None recorded. Medication Orders escitalopr am 20 mg tablet 2015 016 INTERFACE [id number], [address] [facility], [place], [address], 6 15:35:43 Patient TargetsNo targets recorded. Patient Instructions Encounter Date Encounter Id Patient Instructions Last Modified By Organization Details Last Modified Time 07/17/2016 [id number] earwax blockage: care instructions strice Not available 07/17/2016 17:36:37 bipolar disorder : care instructions strice Not available 07/17/2016 17:36:37 learning about mood disorders strice Not available 07/17/2016 17:36:37 This ofice will ob sieh Not available 07/17/2016 15:35:39 Reason for Referral Laryngology Referral for Imp acted cerumen Please call patient to schedule Referring Physician: Tamie Santana, Internal Medicine, Encounter Date: 07/17/2016 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 Referring Physician: Tamie Santana, Internal Medicine, Encounter Date: 07/17/2016 Results Created Date Observation Date Name Description Value Unit Range Abnormal Flag Note LastModifiedBy Organization Detail LastModifiedTime 07/17/20 16 07/21/2016 drug scree n, urine summary FINAL ===== ===== ===== ===== ===== ===== ===== ===== ===== ===== ===== ===== ===== === TOXAS SURE COMP DRUG NICHOLE SIS,U R ===== ===== ===== ===== ===== ===== ===== ===== ===== ===== ===== ===== ===== === TEST RESUL T FLAG UNITS DRUG PRESE NT METHA MPHET AMINE 1463 NG/MG CREAT AMPHE TAMIN E >3086 NG/MG CREAT SOURC ES OF METHA MPHET AMINE INCLU DE ILLIC IT SOURC ES, A SCHED ULED PRESC RIPTI ON MEDIC ATION , A METAB OLITE OF SOME PRESC RIPTI ON DRUGS , OR USE OF AN L-MET HAMPH ETAMI NE INHAL ER. AMPHE TAMIN E IS AN EXPEC TUAN METAB OLITE OF METHA MPHET AMINE . AMPHE TAMIN E IS ALSO AVAIL ABLE A SCHED ULE II PRESC RIPTI ON DRUG. HYDRO CODON E 93 NG/MG CREAT HYDRO MORPH ONE 18 NG/MG CREAT DIHYD ROCOD EINE 36 NG/MG CREAT NORHY DROCO DONE 545 NG/MG CREAT SOURC ES OF HYDRO CODON E INCLU DE SCHED ULED PRESC RIPTI ON MEDIC ATION S. HYDRO MORPH ONE, DIHYD ROCOD EINE AND NORHY DROCO DONE ARE EXPEC TUAN METAB OLITE S OF HYDRO CODON E. HYDRO MORPH ONE AND DIHYD ROCOD EINE ARE ALSO AVAIL ABLE SCHED ULED PRESC RIPTI ON MEDIC ATION S. METHO CARBA MOL PRESE NT CITAL OPRAM PRESE NT DESME THYLC RIGO PRAM PRESE NT DESME THYLC IRGO PRAM IS AN EXPEC TUAN METAB OLITE OF CITAL OPRAM OR THE ENANT IOMER IC FORM, ESCIT ALOPR AM. ACETA MINOP HEN PRESE NT IBUPR OFEN PRESE NT NAPRO XEN PRESE NT ===== ===== ===== ===== ===== ===== ===== ===== ===== ===== ===== ===== ===== === TEST RESUL T FLAG UNITS REF RANGE CREAT ININE 324 MG/DL >=20 ===== ===== ===== ===== ===== ===== ===== ===== ===== ===== ===== ===== ===== === DECLA RED MEDIC ATION S: MEDIC ATION LIST WAS NOT PROVI DED. ===== ===== ===== ===== ===== ===== ===== ===== ===== ===== ===== ===== ===== === FOR CL[facility]I [facility] [facility] ON, PLEAS E CALL [phone]. ===== ===== ===== ===== ===== ===== ===== ===== ===== ===== ===== ===== ===== === Not Available [facility] [address] [place] [address], [place], [address], 07/21/2016 15:11:22 07/17/20 16 07/21/2016 drug scree n, urine pdf . Not Available [facility] [address] [place] [address] [address], [place], [address], 07/21/2016 15:11:22 Result Notes None recorded. Procedures Surgical History Date Name Laterality Status Provider Name and Address Organization Details Recorded Time Back Surgery completed Ras Sow MA [facility] 07/17/2016 14:48:08 Imaging Results None recorded. Procedure Notes None recorded. Medical Equipment None Reported. Allergies No known drug allergies Medications Name Sig Start Date Stop Date Status Note LastModified by Organization Details LastModified Time escitalopram 20 mg tablet Take 1 tablet every day by oral route for 30 days. 016 active Not Available Not Available Not Avai lable Vitals Date Recorded Body height Body weight Body mass index (BMI) Body temperature Oxygen saturation Oxygen saturation in Arterial blood by Pulse oximetry Heart rate Systolic blood pressure Diastolic blood pressure Provider Name and Address Organization Details Last Updated DateTime 6 158.75 cm 67831.8 1 g 24.1 kg/m2 98.3 [degF] 98 % 98 % 91 /min 88 mm[Hg] 58 mm[Hg] Ras Sow MA [facility] 6 14:56:22 Social History Question Answer Notes LastModified by Organizat ion Details LastModified Time Tobacco Smoking Status Current Every Day Smoker cigarettes Ras Sow MA null, [facility] 07/17/2016 14:49:00 How Much Tobacco Do You Smoke? 1 PPD Information not available 07/17/2016 How Many Years Have You Smoked Tobacco? 30 Information not available 07/17/2016 Sex: Unknown Functional Status None recorded. Mental Status None recorded. Family History Relationship Description Onset Age of this Age Resolved Age Notes LastModified by Organization Details LastModified Time Father Depressive disorder [email or web address] Not available 07/17 14:48:25 Mother Disorder of thyroid gland [email or web address] Not available 07/17 14:48:39 Medical History Condition Response Anxiety Disorder Y Depression Y COPD Y Asthma Y Gynecological History Statement/Question Response Date of LMP 07/06/2016 Obstetrics History GPAL:G 0 P 0 0 0 0 Immunizations Vaccine Type Date Status Note Provider Nam e and Address Organization Details Recorded Time tetanus toxoid, unspecified formulation 07/30/2015 completed Ras Sow [place] - [facility] 07/17/2016 14:49:44 Past Encounters Encounter ID Performer Location Encounter Start Date Encounter Closed Date Diagnosis/Indication Diagnosis SNOMED-CT Code Diagnosis ICD10 Code Diagnosis Note [id number] MD Hunter Meng (Adult Med) [address] [place] [address] 07/17/2016 14:29:57 07/19/2016 16:24:14 Bipolar disorder 14672271 F31.9 She has behavior health clinic appointmen t on July at [facility]. 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 No injury, on pills before, xray was taken in [place] , she will transfer to the next orthopod referral. She had steroid medication and PY before but nothing was working, she has had this for the past 6 months. Impacted cerumen 2188982 6 H61.21 Health Concerns Section Related Observation LastModified by Organization Detai ls LastModified Time None Recorded Concern Status LastModified by Organization Details LastModified Time None Recorded Advance Directives Directive None Recorded Payers Encounter Date Sequence Insurance Name Policy Number Policy Campbell Covered Member ID Campbell Member ID Guarantor Name 07/17/2016 1 [place] [employer] Brandy Llanes [id number] Brandy Llanes OBGyn Episode No OBEpisode recorded.
--- OUTSIDE RECORDS SUMMARY | 2024-11-21 13:21 | XMS_ITS ---
Author Organization [facility] Address [address] [place] [address] Care Team Providers Care Crab Picker Name Role Phone Guillermo Merlos Primary Care Provider Betina Mc Unavailable [phone] REASON FOR VISIT Fasting labs Medications Medication SIG (Take, Route, Frequency, Duration) Notes Start Date End Date Status Citalopram Hydrobromide 20 MG 1 tablet Orally Once a day for 30 days Active Vyvanse 70 MG 1 capsule in the mor citlaly Orally Once a day for 30 days 11/18/2024 Active Naproxen 500 MG 1 tablet with food or milk as needed Orally every 12 hrs for 30 days As needed joint pain 11/07/2024 Active Social History Sex Assigned At : Social History Observation Description Sex Assigned At Female Encounters Encounter Location Date Provider Diagnosis [place] [address] [place] [address] 11/10/2024 Guillermo Merlos Plan Of Treatment No Information Progress Notes * Neelam HENNINGeDOB: 3 (53 yo F)Acc No.[id number]:11/10/2024 UNLOCKED PROGRESS NOTE Patient: Madison MCMAHONdie Provider: Darrell Merlos :1970 A ge:53 Y S ex:Female Date:11/10/2024 Address:[address] [place] [address], [address], [place] Check In:08:29 AM 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 Fasting labs. * Medical History: * Medications: T aking Naproxen 500 MG Tablet 1 tablet with food or milk as needed Orally every 12 hrs As needed joint pain, Taking Citalopram Hydrobromide 20 MG Tablet 1 tablet Orally Once a day , Taking Vyvanse 70 MG Capsule 1 capsule in the morning Orally Once a day Objective: * Vitals: Assessment: Plan: * Treatment: * * Electronic signature of Salena Merlos , [id number] on 11/21/2024 at 01:21 PM CDT Sign off status: Pending * Provider: Darrell Merlos Date: 0 11/10/2024 Generated for Kim gamez/Sarika/Amarjit on: 11/21/2024 01:21 PM CDT
--- OUTSIDE RECORDS SUMMARY | 2024-11-21 13:21 | XMS_ITS | Continuity of Care Document ---
Author Organization [facility] Address [address] [place] [address] Phone Care Team Providers Care Computer Support Specialist Instructor Name Role Phone Agnes Nicole NP Unavailable Unavailable Allergies, Adverse Reactions, Alerts Substance Reaction Status Criticality No Known Allergies Active No Inform ation Medications Medication Instructions Dosage Effective Dates (start - stop) Status Comments Lexapro 20 mg tablet take 1 tablet by oral route every day 20 MG - Active needs f/u appt with PCP Lamictal 200 mg tablet take 1 tablet by oral route every day 200 MG - Active take with 150mg for total of 350mg in the morning Lamictal 150 mg tablet take 1 tablet by oral route every day 150 MG - Active with 200mg daily for total 350mg CYCLOBENZAPRINE 5 MG TABLET TAKE 1 TABLET BY ORAL ROUTE 2 TIMES EVERY DAY NEEDED FOR SPASMS IN BACK - Active Vyvanse 70 mg capsule take 1 capsule by oral route every day in the morning 70 MG - Active fill date 02/27 [employer] 5 mg-325 mg tablet take 1 tablet by ORAL route every 12 hours as needed for pain 1 tablet - Active atorvastatin 10 mg tablet take 1 tablet by oral route every day 10 MG - Active albuterol sulfate HFA 90 mcg/actuation aerosol inhaler inhale 2 puff by inhalation route every 4 - 6 hours as needed - Active Abilify 30 mg tablet take 1 tablet by oral route every day 30 MG - Active Lexapro 20 mg tablet take 1 tablet by oral route every day 20 MG - No Longer Active Procedures Procedure Date OFFICE/OUTPATIENT VISIT, EST SPECIMEN HANDLING PREV VISIT, EST, AGE 40-64 ROUTINE VENIPUNCTURE SPECIMEN HANDLING OFFICE/OUTPATIENT VISIT, NEW Advance Directives Directive Yes / No Effective Date File Name No Information Encounters Encounter Description Practice Location Reason(s) For Visit Diagnoses Date Provider Providers Copied on Encounter [facility], [address] [place] [address], [address] [place] [address], tel:[phone] [facility] No Information Sep- 6-201 6 Nicole Agnes. [address] [place] [address], [address] [place] [address]. tel:[phone] [facility], [address] [place] [address], [address] [place] [address], tel:[phone] [facility] No Information Nov-0 4-201 5 Chandler Rehmanory. [address] [place] [address], [address] [place] [address] . tel:[phone] [facility], [address] [place] [address], [address] [place] [address], tel:[phone] [facility] No Information Sep-0 2-201 5 Slovenian Dangelo. [address] [place] [address], [address] [place] [address] . tel:[phone] [facility], [address] [place] [address], [address] [place] [address], tel:[phone] [facility] No Information Earle-2 8-201 5 Nicole Agnes. [address] [place] [address], [facility], . tel:[phone] OFFICE/OUTPAT IENT VISIT, EST [facility], [address] [place] [address], [address] [place] [address], tel:[phone] [facility] wrist pain (chief complaint) Wrist joint pain Earle-0 2-201 5 Nicole Agnes. [address] [place] [address], [facility], [place]. tel:[phone] Referring Provider: Agnes Nicole, [address] [place] [address], [facility]. tel:[phone] [facility], [address] [place] [address], [address] [place] [address], tel:[phone] [facility] No Information Rio-0 4201 5 Azeem Edmond. [address] [place] [address], [id number] , [place]. tel:[phone] Referring Provider: Feli Gann, [address] [place] [address], [address] . 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 [address] [place] [address], [id number] , [place]. [phone] Referring Provider: Feli Gann, [address] [place] [address], [address] . tel:[phone] [facility], [address] [place] [address], [address] [place] [address], tel:[phone] [facility] No Information Rio-0 2-201 5 Corey Alarcon. [address] [place] [address], [facility], . tel:[phone] [facility], [address] [place] [address], [id number], tel:[phone] [facility] No Information Rio-0 1-201 5 Corey Alarcon. [address] [place] [address], [facility], . [phone] Referring Provider: Agnes Nicole, [address] [place] [address], [facility]. tel:[phone] OFFICE/OUTPAT IENT VISIT, [facility], [address] [place] [address], [id number], tel:[phone] [facility] Anxiety (chief complaint) ADHD (chief complaint) Bipolar disorder (chief complaint) AnxietyTobacco AbuseCOPDScreening for diabetes mellitusScreening for thyroid disordersScreening for lipid disordersBipolar disorder, unspecifiedBipolar disorder, unspecifiedADHD 5 Corey Alarcon. [address] [place] [address], [id number], . tel:[phone] Referring Provider: Agnes Nicole, [address] [place] [address], [facility]. tel:[phone] Family History Family Member Type Diagnosis Age At Onset Father Problem (finding) Mental illness Maternal grandmother Problem (finding) Breast cancer Maternal aunt Problem (finding) Colon Cancer (Cause Of ) Payers Payer name Insurance type Covered libertarian ID Lilly li(s) [facility] [id number] Social History Type Description Quantity Date Captured Comments Alcohol Use Details Unknown Caffeine Use Details Unknown Tobacco Use Status Smoking Status No Information Sex Female Sexual Orientation Straight or heterosexual Chief Complaint And Reason For Visit No Information Reason For Referral Reason For Referral No Information Plan Of Treatment Date Type Action Status Referral Ordered: Referrals: Orthopedic Surgery. Evaluate and treat ordered Referral Ordered: X-RAY EXAM OF WRIST Bilateral wrist ordered Referral Referred To: Jose Melchor MD [address] [place] [address], [phone] Ordered: Referrals: Psychiatry. Jose Melchor MD. Evaluate and treat Appointment date/timeframe: SHAHIDA ordered History Of Present Illness Encounter Date Complaint History Of Prese nt Illness wrist pain Onset: 3 weeks a go. Location: right wrist. The pain is sharp. The pain is aggravated by lifting and movement. There are no relieving factors. Associated symptoms include joint instability, joint tenderness, locking, nocturnal awakening, nocturnal pain, numbness, swelling and weakness. Additional information: swollen and stiff. can not weld with this pain. wrist pain (comments) now on keys ited duty at work. annual exam Currently pregna nt: no. : 10. Parity: Term: 5. : 5. Livin. Patient is not contemplating . The patient states she uses tubal ligation for control. Last LMP was 12/11/2014. Her menses is regular with normal flow with a frequency of every 28 days. Negative for dysmenorrhea and menorrhagia. Negative for: breast discharge, breast lump(s), breast pain and breast self exam. Associated symptoms include depression. Pertinent negatives include abnormal bleeding (hematology), abnormal vaginal bleeding, anxiety, decreased libido, difficulty falling sleep, dyspareunia, history of infertility, nocturia, sexual dysfunction, sleep disturbances, urinary incontinence, urinary urgency, vaginal discharge and vaginal itching. She does not take calcium. She does not take Vitamin D. She does not take multivitamins. She does not take Folic acid. The patient does use tobacco. She does not drink alcohol. Additional information: Here for [employer]. Last pap 5 years ago. Had mammogram previously about 7 years ago. Bipolar disorder She states the symptoms are chronic and are stable. reviewed medical history via notes she provided from 11/2013. reviewed INSPECT report. stable on meds. Anxiety The patient does not present with depressed mood or thoughts of or suicide. The patient's risk factors include alcoholism, childhood abuse or neglect, drug abuse, family history of depression, family history of anxiety, family history of bipolar disorder, history of depression and history of suicidal attempts. The patient's relieving factors are drugs. The Anxiety is associated with irritability. The patient denies any chronic pain, headache, nausea, sweating, trembling, urinary frequency, vomiting and weight gain. ADHD Quality of life: behaviors create problems at work. Symptom is aggravated by distractions and tasks requiring attention to detail. Associated symptoms include inattentiveness. Pertinent negatives include bored easily, difficulty waiting turn, disorganization, disregard for personal safety, distracted easily, emotionally labile, excitability, fidgeting/squirming, frequent careless mistakes, frustrated easily, impulsiveness, loses/forgets things, poor self image, restlessness, short attention span, talks excessively and unable to follow directions. Functional Status Date Functional Assessmen t No Information Instructions Date Instruction Additional Infor kalirigoberto Medications as direc elsie xray follow up in 2 months Related to Wrist joint pain Encouraged occasiona l BSE. Technique reviewed. Will schedule screening mammogram at her convenience; hard given. Will order HPV typing on pap; if normal, only needs pap every 5 years. Will return in 1 year for WWE. Related to ROUTINE ASSOCIATE PRODUCT MANAGER EXAMINATION Medications as directed Related to ADHD medications as directed Related to Bipolar disorder, unspecified continue Lexapro Related to Anxi ety Assessments Type Assessment Date No Information Patient Care Teams Name Effective Dates (start - stop) Status Members No Information
== END 2024-11-21 13:13 | disposition home or self-care (01) ==
LOC: ANHIMG 13:19
PROVIDERS: PCP Internal Medicine; Visit Provider Internal Medicine
DX: M25.511 Pain in right shoulder (principal)
CPT/HCPCS: 73030

== ENCOUNTER 2024-12-11 10:19 | Outpatient (CLI) | payer OTHER, SELFPAY ==
--- NOTE | ~2024-12-11 | MM_ITS ---
EXAMINATION: MM screening jaqui BI w yoel HISTORY: Screening TECHNIQUE: Craniocaudal and mediolateral oblique 3-D tomosynthesis images were obtained and synthetic 2-D images were generated. CAD analysis was submitted and interpreted. COMPARISON: No prior mammogram is available for comparison at this institution. BREAST PARENCHYMAL COMPOSITION: Not dense: There are scattered areas of fibroglandular density. FINDINGS: There are bilateral indeterminate calcifications centered superiorly in both breasts on MLO views. There are no suspicious masses or architectural distortion. IMPRESSION: 1. Bilateral clustered indeterminate breast calcifications. 2. Comparison to previous mammograms recommended. If prior mammograms are not available, correlation with magnification views recommended. BI-RADS Category 0: Incomplete: Needs additional imaging evaluation. Reviewed, dictated and finalized at location A. IMPRESSION: 1. Bilateral clustered indeterminate breast calcifications. 2. Comparison to previous mammograms recommended. If prior mammograms are not a vailable, correlation with magnification views recommended. BI-RADS Category 0: Incomplete: Needs additional imaging evaluation.
--- NOTE | ~2024-12-11 | US_ITS ---
Thyroid ultrasound. Clinical History: Thyroid nodule Findings: Real-time sonography of the thyroid gland was performed. The right lobe measures 3.6 x 1.4 x 1.4 cm. The left lobe measures 4.0 x 1.9 x 1.3 cm. The isthmus is 2 mm in AP diameter. Suspected subtle isoechoic solid nodule at the left thyroid lobe measuring 2.2 x 1.5 x 1.7 cm. Impression: Suspected subtle 2.2 cm TR-3 nodule in the left thyroid lobe. Annual follow-up advised. Reviewed, dictated and finalized at location M. Impression: Suspected subtle 2.2 cm TR-3 nodule in the left thyroid lobe. Annual follow-up advised.
--- OUTSIDE RECORDS SUMMARY | 2024-12-11 10:26 | XMS_ITS | Encounter Summary ---
Author Organization [facility] Address [address] [place] [address] Care Team Providers Care Acid Crane Operator Name Role Phone Promise Stafford NP Primary Care Provider Ena Pantoja Primary Care Pr ovider Guillermo Merlos MD Primary Care Provider [phone] Encounter Details Date Type Department Care Team (Late st Contact Info) Description 06/07/2018 Abstract [facility] - [facility] [address] [facility], [address] [place] [address] Britton Moseley MD Social History [...] Rule Out 06/21/2024 06/21/2024 06/21/2024 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
--- OUTSIDE RECORDS SUMMARY | 2024-12-11 10:26 | XMS_ITS | Data Portability ---
Author Organization [facility] Address [address] [place] [address] Assessment No assessment recorded. Plan of Treatment Reminders Order Date Submit Date Provider Last Modified By Organization Details Last Modified Time Details Appointments None recorded. Lab unlisted lab - compliance drug analysis, ur 2015 Patricia [facility] [facility], [address] [place] [address], [address], [place], [address], 6 15:11:22 Referral laryngolog y referral - Please call patient to schedule 2015 Patricia [id number] Abdon De La [address], [address], 7 16:58:46 orthopedic referral 2015 016 [facility] Not available 7 21:44:56 Procedures None recorded. Surgeries None recorded. Imaging None recorded. Medication Orders escitalopr am 20 mg tablet 2015 016 [id number], [address] [facility], [place], [address], 6 15:35:43 Patient TargetsNo targets recorded. Patient Instructions Encounter Date Encounter Id Patient Instructions Last Modified By Organization Details Last Modified Time 07/17/2016 [id number] earwax blockage: care instructions strice Not available 07/17/2016 17:36:37 bipolar disorder : care instructions strice Not available 07/17/2016 17:36:37 learning about mood disorders strice Not available 07/17/2016 17:36:37 This ofice will ob sieh Not available 07/17/2016 15:35:39 Reason for Referral Laryngology Referral for Imp acted cerumen Please call patient to schedule Referring Physician: Tamie Santana, Internal Medicine, Encounter Date: 07/17/2016 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 ===== ===== ===== ===== ===== ===== ===== ===== ===== ===== ===== ===== ===== === Not Available [facility] [address] [place] [address], [place], [address], 07/21/2016 15:11:22 07/17/20 16 07/21/2016 drug scree n, urine pdf . Not Available [facility] [address] [place] [address] [address], [place], [address], 07/21/2016 15:11:22 Result Notes None recorded. Procedures Surgical History Date Name Laterality Status Provider Name and Address Organization Details Recorded Time Back Surgery completed Ras Sow MA [facility] 07/17/2016 14:48:08 Imaging Results None recorded. Procedure [...] Details Last Updated DateTime 6 158.75 cm 13765.8 1 g 24.1 kg/m2 98.3 [degF] 98 % 98 % 91 /min 88 mm[Hg] 58 mm[Hg] Ras Sow MA [facility] 6 14:56:22 Social History Question Answer Notes LastModified by Organizat ion Details LastModified Time Tobacco Smoking Status Current Every Day Smoker cigarettes Ras Sow MA null, [facility] 07/17/2016 14:49:00 How Much Tobacco Do You [...] formulation 07/30/2015 completed Ras Sow [place] [facility] 07/17/2016 14:49:44 Past Encounters Encounter ID Performer Location Encounter Start Date Encounter Closed Date Diagnosis/Indication Diagnosis SNOMED-CT Code Diagnosis ICD10 Code Diagnosis Note [id number] MD Hunter Meng (Adult Med) [address] [place] [address] 07/17/2016 14:29:57 07/19/2016 16:24:14 Bipolar disorder 76302675 F31.9 She has behavior health clinic appointmen t on July at [facility]. 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 No injury, on pills before, xray was taken in [place] , she will transfer to the next orthopod referral. She had steroid medication and PY before but nothing was working, she has had this for the past 6 months. Impacted cerumen 9092466 6 H61.21 Health Concerns Section Related Observation LastModified by Organization Detai ls LastModified Time None Recorded Concern Status LastModified by Organization Details LastModified Time None Recorded Advance Directives Directive None Recorded Payers Encounter Date Sequence Insurance Name Policy Number Policy Campbell Covered Member ID Campbell Member ID Guarantor Name 07/17/2016 1 [place] [employer] Brandy Llanes [id number] Brandy Llanes OBGyn Episode No OBEpisode recorded.
--- OUTSIDE RECORDS SUMMARY | 2024-12-11 10:26 | XMS_ITS | Encounter Summary ---
Author Organization [facility] Address [address] [place] [address] Care Team Providers Care Security Installation Sales Technician Name Role Phone Promise Stafford NP Primary Care Provider Ena Pantoja Primary Care Pr ovider Guillermo Merlos MD Primary Care Provider [phone] Encounter Details Date Type Department Care Team (Late st Contact Info) Description 08/04/[address] 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
--- OUTSIDE RECORDS SUMMARY | 2024-12-11 10:26 | XMS_ITS | Patient Health Record ---
Author Organization [facility] Address [address] [place] [address] Care Team Providers Care Verification Lead Name Role Phone Gaurang Guillermo Primary Care Provider [phone] Betina Mc Unavailable [phone] Shital Ramirez Unavailable [phone] Nick Gomez Unavailable [phone] Kiana Artis Unavailable [phone] Shanika Zimmerman Unavailable [phone] Allergies Allergen (clinical drug ingredient) Drug/Non Drug Allergy documented on EMR Reaction Allergy Type Onset Date Status tramadol Tramadol Unknown Drug Allergy Active Results Component Value Reference Range Notes Lipid Panel* Reviewed date:01/01/2024 04:01:16 PM Interpretation: Performing Lab:[facility], Phone - [phone], Director - [facility] Notes/Report: Test(s) 345022-Eljdvvjby C Genotype was developed and its performance characteristics determined by [employer]. It has not been cleared or approved by the Food and Drug Administration. Cholesterol, Total TNP Please refer to the following specimen for additional lab results. Specimen# [id number] Triglycerides TNP Test not perfo rmed HDL Cholesterol TNP Test not per formed VLDL Cholesterol Ambrose TNP Unable to calculate result since non-numeric result obtained for component test. Hemoglobin A1c* Reviewed date:01/01/2024 04:01:16 PM Interpretation: Performing Lab:[facility], [address] [place] [address], Phone - [phone], Director - [facility] Notes/Report: Test(s) 147459-Repqbpktx C Genotype was developed and its performance characteristics determined by [employer]. It has not been cleared or approved by the Food and Drug Administration. Hemoglobin A1c 5.6 4.8-5.6 % . Prediabetes: 5.7 - 6.4 Diabetes: >6.4 Glycemic control for adults with diabetes: <7.0 Treponema pallidum Antibodie s Reviewed date:01/01/2024 04:01:15 PM Interpretation: Performing Lab:[address], Phone - [phone], Director - [facility] Notes/Report: Treponema pallidum Antibodies Non Reactive Non Reactive Lipid Panel* Reviewed date:01/01/2024 04:01:15 PM Interpretation: Performing Lab:[address], Phone - [phone], Director - [facility] Notes/Report: Cholesterol, Total 227 100-199 mg/dL Triglycerides 97 0-149 mg/dL HDL Cholesterol 55 >39 mg/dL VLDL Cholesterol Ambrose 17 5-40 mg/dL LDL Chol Calc (NIH) 155 0-99 mg/dL CMP 14 Comprehensive Metabol ic Panel* Reviewed date:01/01/2024 04:01:15 PM Interpretation: Performing Lab:[address], Phone - [phone], Director - [facility] Notes/Report: Glucose 84 70-99 mg/dL BUN 11 [...] 0-40 IU/L ALT (SGPT) 107 0-32 IU/L TSH Rfx on Abnormal to Free T4 Reviewed date:01/01/2024 04:01:15 PM Interpretation: Performing Lab:[facility], Phone - [phone], Director - [facility] Notes/Report: TSH 1.570 0.450-4.500 uIU/mL Request Problem TNP Please refer to the following specimen for additional lab results. TEST: 912264 HCV RNA by PCR, Qn Rfx Dona 021248 HIV Ab/p24 Ag with Reflex 034270 Hemoglobin A1c 017310 Hepatitis B Surf Ab Quant 720943 HBsAg Screen Specimen# [id number] HIV Screen *HIV 1, 2 Ab, p24 Ag (729057) Reviewed date:01/01/2024 04:01:16 PM Interpretation: Performing Lab:[facility] [address], Phone - [phone], Director - [facility] Notes/Report: Test(s) 388124-Wfauaipqi C Genotype was developed and its performance characteristics determined by [facility]. It has not been cleared or approved by the Food and Drug Administration. HIV Ab/p24 Ag Screen Non Reactive Non Reactive HIV Negative HIV-1/HIV-2 antibodies and HIV-1 p24 antigen were NOT detected. There is no laboratory evidence of HIV infection. Treponema pallidum Antibodie s Reviewed date:01/01/2024 04:01:16 PM Interpretation: Performing Lab:[facility], Phone - [phone], Director - [facility] Notes/Report: Test(s) 569294-Sosokawqx C Genotype was developed and its performance characteristics determined by [employer]. It has not been cleared or approved by the Food and Drug Administration. Treponema pallidum Antibodies TNP Please refer to the following specimen for additional lab results. Specimen# [id number] 12 Panel Urine Drug Screen Reviewed date:07/01/2024 11:37:04 AM Interpretation: Performing Lab: Notes/Report: THC neg YESENIA neg MOP (OPI) neg AMP POS MET neg BAR neg BZO neg MDMA neg MTD neg OXY neg PCP neg BUP neg Xray : Shoulder, right Reviewed date:11/24/2024 04:30:31 PM Interpretation: Performing Lab: Notes/Report: CMP 14 Comprehensive Metabol ic Panel* Reviewed date:11/24/2024 04:30:31 PM Interpretation: Performing [facility], [address] [facility], Phone - [phone], Director - [facility] Notes/Report: Glucose TNP Test not performed. Serum [...] 0-40 IU/L ALT (SGPT) 22 0-32 IU/L CBC With Differential/Platel et* Reviewed date:11/24/2024 04:30:32 PM Interpretation: Performing Lab:[facility], [address] [facility], Phone - [phone], [facility] - [facility] Notes/Report: WBC 5.8 3.4-10.8 x10E3/uL RBC 4.49 [...] % Immature Grans (Abs) 0.0 0.0-0.1 x10E3/uL TSH Rfx on Abnormal to Free T4 Reviewed date:11/24/2024 04:30:32 PM Interpretation: Performing Lab:[facility] [address], Phone - [phone], Director - [facility] Notes/Report: TSH 2.940 0.450-4.500 uIU/mL Lipid Panel* Reviewed date:11/24/2024 04:30:32 PM Interpretation: Performing Lab:[facility] [address], Phone - [phone], Director - [facility] Notes/Report: Cholesterol, Total 257 100-199 mg/dL Triglycerides 88 0-149 mg/dL HDL Cholesterol 68 >39 mg/dL VLDL Cholesterol Ambrose 15 5-40 mg/dL LDL Chol Calc ([facility]) 174 0-99 mg/dL HCV RNA by PCR, Qn Rfx Dona Reviewed date:11/24/2024 04:30:32 PM Interpretation: Performing Lab:[facility] [address], Phone - [phone], Director - [facility] Notes/Report: Hepatitis C Quantitation HCV Not Detected HCV log10 TNP Unable to calculate result since non-numeric result obtained for component test. Test Information: The quanti tative range of this assay is 15 IU/mL to 100 million IU/mL. HCV Genotype TNP Not indicated Lipid Panel* Reviewed date:03/06/2024 03:13:06 PM Interpretation: Performing Lab:[facility] [place], [facility], Phone - [phone], Director - Gerardo Notes/Report: Cholesterol, Total 178 100-199 mg/dL Triglycerides 67 0-149 mg/dL HDL Cholesterol 58 >39 mg/dL VLDL Cholesterol Ambrose 13 5-40 mg/dL LDL Chol Calc ([facility]) 107 0-99 mg/dL Hepatic Function Panel (7)* Reviewed date:03/06/2024 03:13:30 PM Interpretation: Performing Lab:[facility] [place], [address] [facility], Phone - [phone], Director - Gerardo Notes/Report: Protein, Total 7.9 6.0-8.5 g/dL Albumin 4.6 3.8-4.9 g/dL Bilirubin, Total 0.5 0.0-1.2 mg/dL Bilirubin, Direct 0.15 0.00-0.40 mg/dL Alkaline Phosphatase 139 44-121 IU/L AST (SGOT) 156 0-40 IU/L ALT (SGPT) 195 0-32 IU/L Pap IG Aptima HPV Age Gdln, +CtNgTv (503684) Reviewed date:02/14/2024 08:08:27 AM Interpretation:Abnormal Performing Lab:[facility] [place], [address] [facility], Phone - [phone], Director - Marcelino Notes/Report: Clinical Information:[id number] Clinical Information:[id number] Age Gdln ACOG Testing 30-65 DIAGNOSIS: NEGATIVE FOR INTRAEPITHELIAL LESION OR MALIGNANCY. CELLULAR CHANGES ASSOCIATED WITH INFLAMMATION ARE PRESENT. Specimen adequacy: Satisfactory for evaluation. Endocervical and/or squamous metaplastic cells (endocervical component) are present. Clinician provided ICD10: Z0 1.419 Performed by: India Chavez, Snowboard Designer (ASCP) . . Note: The Pap smear [...] Report Reviewed date:02/14/2024 08:08:27 AM Interpretation:Abnormal Performing Lab:[facility], [address] [place] [address], Phone - [phone], Director - Marcelino Notes/Report: Clinical Information:[id number] PDF Report1 LCLS TSH Rfx on Abnormal to Free T4 Reviewed date:01/01/2024 04:01:15 PM Interpretation: Performing Lab:[facility], [address] [place] [address], Phone - [phone], Director - Gerardo Notes/Report: Test(s) 738398-Hlyjglxqx C Genotype was developed and its performance characteristics determined by [employer]. It has not been cleared or approved by the Food and Drug Administration. TSH TNP Please refer to the following specimen for additional lab results. Specimen# [id number] CMP 14 Comprehensive Metabol ic Panel* Reviewed date:01/01/2024 04:01:16 PM Interpretation: Performing Lab:[facility] [place], [address] [place] [address], Phone - [phone], Director - Gerardo Notes/Report: Test(s) 073468-Kaqosmzhe C Genotype was developed and its performance characteristics determined by [facility]. It has not been cleared or approved by the Food and Drug Administration. Glucose TNP Please refer to the following specimen for additional lab results. Specimen# [id number] BUN TNP Test not perfor med Creatinine [...] ALT (SGPT) TNP Test not perfor med Hepatitis B Surface Antigen (HBsAg Screen) Reviewed date:01/01/2024 04:01:16 PM Interpretation: Performing Lab:[facility] [place] [address] [place] [address], Phone - [phone], Director - [facility] Notes/Report: Test(s) 521176-Ejhdnktjt C Genotype was developed and its performance characteristics determined by [facility]. It has not been cleared or approved by the Food and Drug Administration. HBsAg Screen Negative Negative Request Problem TNP Please refer to the following specimen for additional lab results. TEST: 410232 Comp. Metabolic Panel [phone]) 777556 Lipid Panel 680100 Treponema pallidum Antibodies 243123 TSH Rfx on Abnormal to Free T4 Specimen# [id number] Hepatitis B Surf Ab Quant* Reviewed date:01/01/2024 04:01:16 PM Interpretation: Performing Lab:[facility] [address], Phone - [phone], Director - [facility] Notes/Report: Test(s) 384421-Zhbqqfgru C Genotype was developed and its performance characteristics determined by [facility]. It has not been cleared or approved by the Food and Drug Administration. Hepatitis B Surf Ab Quant <3.1 Immuni ty>9.9 mIU/mL Status of Immunity Anti-HBs Level Inconsistent with Immunity 0.0 - 9.9 Consistent with Immunity >9.9 Effective January 28, 2024 the reference interval will be changing to: Immunity >10 HCV RNA by PCR, Qn Rfx Dona Reviewed date:01/01/2024 04:01:16 PM Interpretation: Performing Lab:[facility] [place] [id number] [facility], [place], Phone - [phone], Director - [facility] Notes/Report: Test(s) 708942-Uglsxiely C Genotype was developed and its performance characteristics determined by [facility]. It has not been cleared or approved by the Food and Drug Administration. Test(s) 284152-Epkdlzoqz C Genotype was developed and its performance characteristics determined by [facility]. It has not been cleared or approved by the Food and Drug Administration. Hepatitis C Quantitation [id number] HCV log10 6.690 Test Information: The quanti tative range of this assay is 15 IU/mL to 100 million IU/mL. HCV Genotype To be performed on this specimen. Hepatitis C Genotype 1a Reason For Referral Reason EVAL AND TX FOR [facility] SPECIALIST LASHAWN ACTIVE HEPATITIS C Diagnosis 1 Hepatitis C (B19.20) Referral Organization [facility] Referring Provider First Name Guillermo Referring Provider Last Name Merlos Referring Provider Speciality Internal M edicine Referred Provider Specialty Gastroentero logy General Notes Astrid Hendricks 03:06:53 PM >[facility] does not take clients insurance., Astrid Hendricks 01/04/2024 03:09:35 PM >Referral faxed to [facility]., Astrid Hendricks 01/04/2024 03:13:52 PM >Referral letter & message sent to client. Clinical Notes [facility], [address], [place] [address], , Referral Priority Routine Medications Medication SIG [...] noted. Reviewed PDMP, no concerns n oted. Problems Problem Type SNOMED Code ICD Code Onset Dates Problem Status W/U Status Risk Notes Problem Tobacco user (601646068) Nicotine dependence, unspecified, uncomplicated (F17.200) Active confirmed Problem Borderline personality disorder (75414425) Borderline personality disorder (F60.3) Active confirmed Problem 01599980 Mood disorder (F39) 2016 Active confirmed r/o bipolar disorder Problem 41764357 Anxiety (F41.9) Active confirmed Problem Attention deficit disorder (41548064) ADD (attention deficit disorder) (F90.0) Active confirmed Problem Hepatitis C (56019527) Hepatitis C (B19.20) Active confirmed Problem Thyroid nodule (142360661) Thyroid nodule (E04.1) 2023 Active confirmed Problem Recurrent major depression (36330873) Major depression, recurrent (F33.9) Active confirmed Problem 72856000 Major depressive disorder with single episode, remission status unspecified (F32.9) 2016 Active confirmed Problem 66088127 Bipolar affectiv e disorder, remission status unspecified (F31.9) 2016 Active confirmed Problem 28269100 Situational depression (F43.21) Active confirmed Problem 891923543 ADD (attention deficit disorder) (F98.8) Active confirmed prior diagonsis from history Problem Hypercholesterolemia (80604700) Hypercholesterolem ia (E78.00) Active confirmed Problem Carpal tunnel syndrome (06960148) Carpal tunnel syndrome on both sides (G56.03) Active confirmed Vital Signs Heart Rate 93 /min 11/07/2024 Temperature 98.2 degrees Fahrenheit 11/07/2024 Respiratory Rate 16 /min 11/07/2024 Oximetry 98 % 11/07/2024 Blood pressure diastolic 68 mm Hg 11/07/2024 Height 62 in 11/07/2024 Blood pressure systolic 112 mm Hg 11/07/2024 Weight 135.6 lbs 11/07/2024 BMI 24.8 kg/m2 11/07/2024 Encounters Encounter Location Date Provider Diagnosis [address] [place] [address] 12/25/2023 Betina Mc ADD (attention defic it disorder) F90.[address] [address] 02/07/2024 Nick Gomez ADD (attention defic it disorder) F90.[address] [place] [address] 02/14/2024 Shanika Zimmerman Trichomoniasis A59.[address] [place] [address] 03/04/2024 Nick Gomez ADD (attention defic it disorder) F90.0 and Major depression, recurrent F33.[address] [address] 04/02/2024 Kiana Artis Major depression, recurrent F33.9 and ADD (attention deficit disorder) F90.0 [facility] [address] [address] 04/29/2024 Betina Mc Major depression, recurrent F33.9 and ADD (attention deficit disorder) F90.[address] [place] [address] 05/15/2024 Betina Mc [address] [place] [address] 06/06/2024 Betina Mc [address] [place] [address] 06/24/2024 Betina Mc Major depression, recurrent F33.9 and ADD (attention deficit disorder) F90.[address] [place] [address] 08/04/2024 Betina Mc [facility] [address] [place] [address] 08/14/2024 Betina Mc ADD (attention defic it disorder) F90.0 [facility] [address] [place] [address] 09/11/2024 Betina Mc [facility] [address] [place] [address] 09/11/2024 Betina Mc ADD (attention defic it disorder) F90.0 and Major depression, recurrent F33.[address] [place] [address] 10/14/2024 Betina Mc ADD (attention defic it disorder) F90.[address] [facility] [place] [address] 10/22/2024 Betina Mc ADD (attention defic it disorder) F90.[address] [place] [address] 11/20/2024 Betina Mc ADD (attention defic it disorder) F90.0 [facility] [place] [address] 07/01/2024 Betina Mc Major depression, recurrent F33.9 ; Borderline personality disorder F60.3 ; Anxiety F41.9 and ADD (attention deficit disorder) F90.0 [place] [address] [place] [address] 10/21/2024 Betina Mc Major depression, recurrent F33.9 ; Borderline personality disorder F60.3 ; Anxiety F41.9 and ADD (attention deficit disorder) F90.0 [facility] [address] [place] [address] 11/10/2024 Guillermo Merlos [facility] [address] [place] [address] 02/11/2024 Shital Ramirez [facility] [place] [address] 01/04/2024 Guillermo Merlos Hypercholesterolemia E78.00 and Hepatitis C B19.20 [place] [address] [place] [address] 02/01/2024 Guillermo Merlos Hypercholesterolemia E78.00 ; Hepatitis C B19.20 and Thyroid nodule E04.1 [place] [address] [place] [address] 11/07/2024 Guillermo Merlos Lateral epicondyliti s of right elbow M77.11 ; Right shoulder pain M25.511 ; Thyroid nodule E04.1 ; Breast cancer screening Z12.39 ; Hepatitis C B19.20 ; Hypercholesterolemia E78.00 and Patellofemoral arthralgia of right knee M25.561 [place] [address] [address] [place] [address] 12/21/2023 Guillermo Merlos Thyroid nodule E04.1 ; Hepatitis C B19.20 ; Right shoulder pain M25.511 ; Hypercholesterolemia E78.00 ; Exposure to potential infection Z20.9 ; Menopause Z78.0 ; Tinea B35.9 ; Onychocryptosis L60.0 ; Colon polyps K63.5 ; Breast cancer screening Z12.39 ; Cervical cancer screening Z12.4 ; Metabolic syndrome E88.810 and Carpal tunnel syndrome on both sides G56.03 [place] [address] [place] [address] 02/11/2024 Shanika Short Well woman exam with routine gynecological exam Z01.419 [place] [address] [place] [address] 05/20/2024 Betina Mc Major depression, recurrent F33.9 ; Borderline personality disorder F60.3 ; Anxiety F41.9 and ADD (attention deficit disorder) F90.[address] [facility] [place] [address] 01/10/2024 Betina Mc Major depression, recurrent F33.9 ; Borderline personality disorder F60.3 ; Anxiety F41.9 and ADD (attention deficit disorder) F90.0 Assessments Encounter Date Diagnosis (ICD Code) Assessment Notes Treatment Notes Treatment Clinical Notes Section Notes 11/07/2024 Lateral epicondyliti s of right elbow (ICD-10 - M77.11) stretches, heat, wrap, nsaid 12/25/2023 ADD (attention defic it disorder) (ICD-10 - F90.0) 01/10/2024 Major depression, recurrent (ICD-10 - F33.9) Client reports has been given GI referral- client to make GI provider aware of current MH regimen to see if they suggest any changes while doing treatment. Client v/u and agreement to this plan. Discussed possible decrease in both medications may be warranted. Client reports understanding. 02/14/2024 Trichomoniasis (ICD- 10 - A59.9) 03/04/2024 ADD (attention defic it disorder) (ICD-10 - F90.0) 04/29/2024 Major depression, recurrent (ICD-10 - F33.9) 09/11/2024 ADD (attention defic it disorder) (ICD-10 - F90.0) 11/07/2024 Right shoulder pain (ICD-10 - M25.511) discussed yo chi for chronic pain 11/20/2024 ADD (attention defic it disorder) (ICD-10 - F90.0) 10/22/2024 ADD (attention defic it disorder) (ICD-10 - F90.0) 10/21/2024 Major depression, recurrent (ICD-10 - F33.9) [place] agreement to continue current regimen. 10/14/2024 ADD (attention defic it disorder) (ICD-10 - F90.0) 08/14/2024 ADD (attention defic it disorder) (ICD-10 - F90.0) 07/01/2024 Major depression, recurrent (ICD-10 - F33.9) Changing from Lexapro to Celexa- discussed to decrease lexapro by taking half a tablet for 3 days then start Celexa at half a tablet for 2 days then increase to a full tablet. 06/24/2024 Major depression, recurrent (ICD-10 - F33.9) 04/02/2024 Major depression, recurrent (ICD-10 - F33.9) 02/11/2024 Well woman exam with routine gynecological exam (ICD-10 - Z01.419) 02/07/2024 ADD (attention defic it disorder) (ICD-10 - F90.0) 02/01/2024 Hepatitis C (ICD-10 - B19.20) 02/01/2024 Hypercholesterolemia (ICD-10 - E78.00) 01/04/2024 Hepatitis C (ICD-10 - B19.20) 01/04/2024 Hypercholesterolemia (ICD-10 - E78.00) 12/21/2023 Hepatitis C (ICD-10 - B19.20) 12/21/2023 Thyroid nodule (ICD- 10 - E04.1) 05/20/2024 Major depression, recurrent (ICD-10 - F33.9) Changing from Lexapro to Celexa- discussed to decrease lexapro by taking half a tablet for 3 days then start Celexa at half a tablet for 2 days then increase to a full tablet. 04/02/2024 ADD (attention defic it disorder) (ICD-10 - F90.0) 12/21/2023 Right shoulder pain (ICD-10 - M25.511) 02/01/2024 Thyroid nodule (ICD- 10 - E04.1) 05/20/2024 Borderline personali ty disorder (ICD-10 - F60.3) Continue counseling 06/24/2024 ADD (attention defic it disorder) (ICD-10 - F90.0) 07/01/2024 Borderline personali ty disorder (ICD-10 - F60.3) Continue counseling 10/21/2024 Borderline personali ty disorder (ICD-10 - F60.3) Continue counseling 11/07/2024 Thyroid nodule (ICD- 10 - E04.1) 09/11/2024 Major depression, recurrent (ICD-10 - F33.9) 03/04/2024 Major depression, recurrent (ICD-10 - F33.9) 04/29/2024 ADD (attention defic it disorder) (ICD-10 - F90.0) 01/10/2024 Borderline personali ty disorder (ICD-10 - F60.3) Continue counseling 01/10/2024 Anxiety (ICD-10 - F41.9) Continue lexapro, client reports coping well, encouraged counseling 11/07/2024 Breast cancer screening (ICD-10 - Z12.39) 10/21/2024 Anxiety (ICD-10 - F41.9) Encouraged counseling Continue coping mechanisms 07/01/2024 Anxiety (ICD-10 - F41.9) Encouraged counseling Continue coping mechanisms 05/20/2024 Anxiety (ICD-10 - F41.9) Starting Celexa, client reports coping well, encouraged counseling 12/21/2023 Hypercholesterolemia (ICD-10 - E78.00) 12/21/2023 Exposure to potentia l infection (ICD-10 - Z20.9) 05/20/2024 ADD (attention defic it disorder) (ICD-10 - F90.0) Client reports doing well with the current dose. PDMP with no concerns, may fill. 07/01/2024 ADD (attention defic it disorder) (ICD-10 [...] Cervical cancer screening (ICD-10 - Z12.4) 12/21/2023 Metabolic syndrome (ICD-10 - E88.810) 12/21/2023 Carpal tunnel syndro me on both sides (ICD-10 - G56.03) AVOID AGGRAVATING ACTIVITIES 01/10/2024 Other Reasons, potential benefits, potential risks, [...] May also contact the 24-hour crisis hotline ([facility]), refer to the closest emergency room or [...] May also contact the 24-hour crisis hotline ([facility]), refer to the closest emergency room or [...] May also contact the 24-hour crisis hotline ([facility]), refer to the closest emergency room or [...] May also contact the 24-hour crisis hotline ([facility]), refer to the closest emergency room or call 911 if new symptoms arise of existing symptoms worsen. The Patient/Guardian is aware that this would apply to symptoms like: suicidal ideation, homicidal ideation, high risk behaviors, manic symptoms, psychotic [id number]|2024-12-11 10:26:00|2024-12-11 10:26:00|XMS_ITS|BKG DATEE|External Medical Summaries|[id number]|" Progress note - 11/10/2024 Created on: December 11, 2024 Brandy Llanes : 1970 Sex: Female Author Organization [facility] Address [address] [place] [address] Care Team Providers Care Verification Lead Name Role Phone Guillermo Merlos Primary Care Provider Betina Mc Unavailable [phone] REASON FOR VISIT Fasting labs Medications Medication [...] Female Encounters Encounter Location Date Provider Diagnosis [address] [place] [address] 11/10/2024 Guillermo Merlos Plan Of Treatment No Information Progress Notes * Neelam LLANESeDOB: 3 (54 yo F)Acc No.[id number]:11/10/2024 UNLOCKED PROGRESS NOTE Patient: Radha YeungBrandy FOWLER Provider: Darrell Merlos :1970 A ge:53 Y S ex:Female Date:11/10/2024 Address:[address] [place] [address], [address] Check In:08:29 AM DIRECTOR OF CARDIOLOGY Subjective: * Chief Complaints: * 1 . [...] * Electronic signature of Salena Merlos , [id number] on 12/11/2024 at 10:26 AM CDT Sign off status: Pending * Provider: Darrell Merlos Date: 0 11/10/2024 Generated for Kim gamez/Sarika/Amarjit on: 0 12/11/2024 10:26 AM CDT "
--- OUTSIDE RECORDS SUMMARY | 2024-12-11 10:26 | XMS_ITS | Continuity of Care Document ---
Author Organization [facility] Address [address] [place] [address] Phone Care Team Providers Care Modeling Agent Name Role Phone Agnes Nicole NP Unavailable [...] 70 MG - Active fill date 02/27 [place] 5 mg-325 mg tablet take 1 tablet [...] Diagnoses Date Provider Providers Copied on Encounter [facility], [address] [place] [address], [address] [place] [address], tel:[phone] [facility] No Information Sep- 6-201 6 Nicole Agnes. [address] [place] [address], [address] [place] [address]. tel:[phone] [facility], [address] [place] [address], [address] [place] [address], tel:[phone] [facility] No Information Nov-0 4-201 5 Chandler Rehmanory. [address] [place] [address], [address] [place] [address] . tel:[phone] [facility], [address] [place] [address], [address] [place] [address], tel:[phone] [facility] No Information Sep-0 2-201 5 Latvian Dangelo. [address] [place] [address], [address] [place] [address] . tel:[phone] [facility], [address] [place] [address], [address] [place] [address], tel:[phone] [facility] No Information Earle-2 8-201 5 Nicole Agnes. [address] [place] [address], [facility], . tel:[phone] OFFICE/OUTPAT IENT VISIT, EST [facility], [address] [place] [address], [address] [place] [address], tel:[phone] [facility] wrist pain (chief complaint) Wrist joint pain Earle-0 2-201 5 Nicole Agnes. [address] [place] [address], [facility], [place]. tel:[phone] Referring Provider: Agnes Nicole, [address] [place] [address], [facility]. tel:[phone] [facility], [address] [place] [address], [address] [place] [address], tel:[phone] [facility] No Information Rio-0 4201 5 Azeem Edmond. [address] [place] [address], [id number] , [place]. tel:[phone] Referring Provider: Feli Gann, [address] [place] [address], [address] . tel:[phone] PREV VISIT, EST, AGE 40-66 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 [address] [place] [address], [id number] , [place]. [phone] Referring Provider: Feli Gann, [address] [place] [address], [address] . tel:[phone] [facility], [address] [place] [address], [address] [place] [address], tel:[phone] [facility] No Information Rio-0 2-201 5 Corey Alarcon. [address] [place] [address], [facility], . tel:[phone] [facility], [address] [place] [address], [id number], tel:[phone] [facility] No Information Rio-0 1-201 5 Corey Alarcon. [address] [place] [address], [facility], . [phone] Referring Provider: Agnes Nicole, [address] [place] [address], [facility]. tel:[phone] OFFICE/OUTPAT IENT VISIT, [facility], [address] [place] [address], [id number], tel:[phone] [facility] Anxiety (chief complaint) ADHD (chief complaint) Bipolar disorder (chief complaint) AnxietyTobacco AbuseCOPDScreening for diabetes mellitusScreening for thyroid disordersScreening for lipid disordersBipolar disorder, unspecifiedBipolar disorder, unspecifiedADHD 5 Corey Alarcon. [address] [place] [address], [address], . tel:[phone] Referring Provider: Agnes Nicole, [address] [place] [address], [facility]. tel:[phone] Family History Family Member Type Diagnosis Age At Onset Father Problem (finding) Mental illness Maternal grandmother Problem (finding) Breast cancer Maternal aunt Problem (finding) Colon Cancer (Cause Of ) Payers Payer name Insurance type Covered constitution party ID Lilly li(s) [facility] [id number] Social History Type Description Quantity Date Captured [...] ordered Referral Referred To: Jose Melchor MD [address] [place] [address], [phone] Ordered: Referrals: Psychiatry. Jose Melchor MD. Evaluate [...] 1 year for [employer]. 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
--- OUTSIDE RECORDS SUMMARY | 2024-12-11 10:26 | XMS_ITS | Clinical Summary ---
Author Organization [facility] Address [facility] [place] [address] Care Team Providers Care Profiler Name Role Phone Guillermo Merlos MD Primary Care Provider Allergies No known active allergies Medications citalopram (CELEXA) 40 MG tablet Take 0.5 tablets (20 mg total) by mouth daily. 05/20/2024 Active VYVANSE 70 MG capsule Take 1 capsule (70 mg total) by mouth every morning. 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 Comment:HBsAg NOT DETECTED. HEP B CORE IGM NON-REACT PEPE NON-REACT PEPE 02/27/2021 7:[address] [facility] Comment: IgM ANTI HBc NOT DETECTED. DOES NOT EXCLUDE THE POSSIBILITY OF EXPOSURE TO OR INFECTION WITH HBV. NO RETEST REQUIRED. HIGH DOSES OF BIOTIN MAY INTERFERE WITH THIS TEST RESULT. CORRELATION TO CLINICAL HISTORY AND PRESENTATION RECOMMENDED. HAV IGM NON-REACT PEPE NON-REACT PEPE 02/27/2021 7:[address] [facility] Comment: IgM ANTI HAV NOT DETECTED. DOES NOT EXCLUDE THE POSSIBILITY OF EXPOSURE TO OR INFECTION WITH HAV. LEVELS OF IgM ANTI HAV MAY BE BELOW THE CUTOFF IN EARLY INFECTION. HEPATITIS C AB REACTIVE( A) NON-REACT PEPE 02/27/2021 7:[address] [facility] Comment: PRESUMPTIVE EVIDENCE OF ANTIBODIES TO HCV. CONSIDER ORDERING HCV RNA DETECTION AND QUANTIFICATION BY RT-PCR ANALYSIS ON A NEW SPECIMEN. 02/27/2021 5:34 AM CDT Surinder Fisher MD LABORATORY Final Result [facility] [address] [place] [address], [phone] * MG SCREENING W EBER SYLVIE DIGI (05/02/2018 2:51 PM CDT) Anatomical Region Laterality Modality Breast Bilateral Mammography 05/02/2018 2:51 PM CDT 05/02/2018 2:51 PM CDT Narrative 05/02/2018 2:55 PM CDT SARA HENNING ADMIT/SERVICE DATE: 05/02/18 ACCT: [id number] DISCHARGE DATE: : 1970 SEX: F ORD SITE: [facility] PT TYPE: REG CLI ORDERING MD: PROMISE VALENZUELA NP STUDY DATE REPORT # ORDER # EXT ORDER ID 05/02/18 [id number] PROC CODE: DSMTWB PROCEDURE DESCRIPTION: MG SCREEN [...] MD ON 05/02/2018 2:52 PM Procedure Note , Generic Rosa Elena, - 06/01/2018 SARA HENNING ADMIT/SERVICE DATE:05/02/18 ACCT: [id number] DISCHARGE DATE: : 1970 SEX: F ORD SITE: [facility] PT TYPE: REG CLI ORDERING MD:PROMISE VALENZUELA NP STUDY DATE REPORT # ORDER # EXT ORDER ID 05/02/18 [id number] PROC CODE: DSMTWB PROCEDURE DESCRIPTION: MG SCREEN [...] Most Recently Relevant to Health Maintenance [place] [place] [address] Advance Directives * Full Code (Latest Code Status on File) Date Activated Date Inactivated Comments 02/27/2021 4:38 AM 03/07/2021 4:11 PM * Full Code Date Activated Date Inactivated Comments 10/15/2018 10:00 AM 10/15/2018 2:43 PM Care Teams Profiler Relationship Specialty Start Date End Date Guillermo Merlos MD [address] [facility] [address] [place], [place] [id number] PCP - General INTERNAL MEDICINE 12/28/23
== END 2024-12-11 10:20 | disposition home or self-care (01) ==
LOC: ANHIMG 10:20
PROVIDERS: PCP Internal Medicine; Visit Provider Internal Medicine
DX: Z12.31 Encounter for screening mammogram for malignant neoplasm of breast (principal); R92.8 Other abnormal and inconclusive findings on diagnostic imaging of breast; E04.1 Nontoxic single thyroid nodule
CPT/HCPCS: 76536; 77063; 77067

== ENCOUNTER 2025-01-15 13:56 | Outpatient (CLI) | payer OTHER, SELFPAY ==
--- NOTE | ~2025-01-15 | MM_ITS ---
EXAMINATION: MM diagnostic jaqui BI w yoel HISTORY: Follow-up breast calcifications TECHNIQUE: Additional 3-D tomosynthesis images of the breasts were performed and synthetic 2-D images were generated. CAD analysis was submitted and interpreted. COMPARISON: 12/11/2024 BREAST PARENCHYMAL COMPOSITION: Dense: The breasts are heterogeneously dense, which may obscure small masses FINDINGS: Bilateral breast calcifications have a relatively monomorphic appearance with no suspicious features. There are no suspicious masses or architectural distortion. IMPRESSION: 1. Probable benign bilateral breast calcifications. 2. Recommend 6 month follow-up diagnostic bilateral mammogram. BI-RADS category 3, probably benign findings. Reviewed, dictated and finalized at location A.
--- OUTSIDE RECORDS SUMMARY | 2025-01-15 14:13 | XMS_ITS | Data Portability ---
Author Organization [facility] Address [address] [place] [address] Assessment No assessment recorded. Plan of Treatment Reminders Order Date Submit Date Provider Last Modified By Organization Details Last Modified Time Details Appointments None recorded. Lab unlisted lab - compliance drug analysis, ur 2015 Patricia [facility], [address] [place] [address], [address], [address], 6 15:11:22 Referral laryngolog y referral - Please call patient to schedule 2015 Patricia [id number] Abdon De La [address], [address], 7 16:58:46 orthopedic referral 2015 016 [facility] Not available 7 21:44:56 Procedures None recorded. Surgeries None recorded. Imaging None recorded. Medication Orders escitalopr am 20 mg tablet 2015 016 INTERFACE [id number], [address] [facility], [place], [address], 6 15:35:43 Patient TargetsNo targets recorded. Patient Instructions Encounter Date Encounter Id Patient Instructions Last Modified By Organization Details Last Modified Time 07/17/2016 [id number] earwax blockage: care instructions strice Not available 07/17/2016 17:36:37 bipolar disorder : care instructions strice Not available 07/17/2016 17:36:37 learning about mood disorders strice Not available 07/17/2016 17:36:37 This ofice will ob sieh Not available 07/17/2016 15:35:39 Reason for Referral Laryngology Referral for Imp acted cerumen Please call patient to schedule Referring Physician: Tamie Santana, Internal Medicine, Encounter Date: 07/17/2016 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 Not Available [facility] [address] [place] [address] [address], [place], [address], 07/21/2016 15:11:22 Result Notes None recorded. Procedures Surgical History Date Name Laterality Status Provider Name and Address Organization Details Recorded Time Back Surgery completed Ras Sow MA [facility] 07/17/2016 14:48:08 Imaging Results None recorded. Procedure [...] Details Last Updated DateTime 6 158.75 cm 75383.8 1 g 24.1 kg/m2 98.3 [degF] 98 % 98 % 91 /min 88 mm[Hg] 58 mm[Hg] Ras Sow MA [facility] 6 14:56:22 Social History Question Answer Notes LastModified by Organizat ion Details LastModified Time Tobacco Smoking Status Current Every Day Smoker cigarettes Ras Sow MA null, [facility] 07/17/2016 14:49:00 How Much Tobacco Do You [...] formulation 07/30/2015 completed Ras Sow [place], [place] - [facility] 07/17/2016 14:49:44 Past Encounters Encounter ID Performer Location Encounter Start Date Encounter Closed Date Diagnosis/Indication Diagnosis SNOMED-CT Code Diagnosis ICD10 Code Diagnosis Note [id number] MD Hunter Mneg (Adult Med) [address] [place] [address] 07/17/2016 14:29:57 07/19/2016 16:24:14 Bipolar disorder 68152175 F31.9 She has behavior health clinic appointmen t on July at [facility]. 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 No injury, on pills before, xray was taken in [place] , she will transfer to the next orthopod referral. She had steroid medication and PY before but nothing was working, she has had this for the past 6 months. Impacted cerumen 7963245 6 H61.21 Health Concerns Section Related Observation LastModified by Organization Detai ls LastModified Time None Recorded Concern Status LastModified by Organization Details LastModified Time None Recorded Advance Directives Directive None Recorded Payers Insurance Date Sequence Insurance Name Policy Number Policy Campbell Covered Member ID Campbell Member ID Guarantor Name 07/23/2017 1 [place] A[place] Brandy Llanes [id number] Brandy Llanes OBGyn Episode No OBEpisode recorded.
--- OUTSIDE RECORDS SUMMARY | 2025-01-15 14:13 | XMS_ITS ---
Author Organization [facility] Address [address] [place] [address] Care Team Providers Care Dealer Relationship Manager Name Role Phone Guillermo Merlos Primary Care Provider Betina Mc Unavailable [phone] REASON FOR VISIT Fasting labs Medications Medication [...] Female Encounters Encounter Location Date Provider Diagnosis [place] [address] [place] [address] 11/10/2024 Guillermo Merlos Plan Of Treatment Next Appt Details Provider Name:Betina blair, 01/21/2025 11:00:00 AM, [address] [facility] [address], [place], [address], Progress Notes * Todd HENNINGOB: 3 (54 yo F)Acc No.[id number]:11/10/2024 UNLOCKED PROGRESS NOTE Patient: Brandy MCMAHON Provider: Darrell Merlos :1970 A ge:53 Y S ex:Female Date:11/10/2024 Address:[address] [place] [address] Check In:08:29 AM RN FIRST ASSIST Subjective: * Chief Complaints: * 1 . [...] * Electronic signature of Salena Merlos , [id number] on 01/15/2025 at 02:13 PM CDT Sign off status: Pending * Provider: Darrell Merlos Date: 0 11/10/2024 Generated for Kim gamez/Sarika/Amarjit on: 01/15/2025 02:13 PM CDT
--- OUTSIDE RECORDS SUMMARY | 2025-01-15 14:13 | XMS_ITS | Continuity of Care Document ---
Author Organization [facility] Address [address] [place] [address] Phone Care Team Providers Care Supplier Quality Specialist Name Role Phone Agnes Nicole NP Unavailable [...] 70 MG - Active fill date 02/27 [place] 5 mg-325 mg tablet take 1 tablet [...] Diagnoses Date Provider Providers Copied on Encounter [facility], [address] [place] [address], [address] [place] [address], tel:[phone] [facility] No Information Sep- 6-201 6 Nicole Agnes. [address] [place] [address], [address] [place] [address]. tel:[phone] [facility], [address] [place] [address], [address] [place] [address], tel:[phone] [facility] No Information Nov-0 4-201 5 Chandler Rehmanory. [address] [place] [address], [address] [place] [address] . tel:[phone] [facility], [address] [place] [address], [address] [place] [address], tel:[phone] [facility] No Information Sep-0 2-201 5 German Dangelo. [address] [place] [address], [address] [place] [address] . tel:[phone] [facility], [address] [place] [address], [address] [place] [address], tel:[phone] [facility] No Information Earle-2 8-201 5 Nicole Agnes. [address] [place] [address], [facility], . tel:[phone] OFFICE/OUTPAT IENT VISIT, EST [facility], [address] [place] [address], [address] [place] [address], tel:[phone] [facility] wrist pain (chief complaint) Wrist joint pain Earle-0 2-201 5 Nicole Agnes. [address] [place] [address], [facility], [place]. tel:[phone] Referring Provider: Agnes Nicole, [address] [place] [address], [facility]. tel:[phone] [facility], [address] [place] [address], [address] [place] [address], tel:[phone] [facility] No Information Rio-0 4201 5 Azeem Edmond. [address] [place] [address], [id number] , [place]. tel:[phone] Referring Provider: Feli Gann, [address] [place] [address], [address] . 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 [address] [place] [address], [id number] , [place]. [phone] Referring Provider: Feli Gann, [address] [place] [address], [address] . tel:[phone] [facility], [address] [place] [address], [address] [place] [address], tel:[phone] [facility] No Information Rio-0 2-201 5 Corey Alarcon. [address] [place] [address], [facility], . tel:[phone] [facility], [address] [place] [address], [id number], tel:[phone] [facility] No Information Rio-0 1-201 5 Corey Alarcon. [address] [place] [address], [facility], . [phone] Referring Provider: Agnes Nicole, [address] [place] [address], [facility]. tel:[phone] OFFICE/OUTPAT IENT VISIT, [facility], [address] [place] [address], [id number], tel:[phone] [facility] Anxiety (chief complaint) ADHD (chief complaint) Bipolar disorder (chief complaint) AnxietyTobacco AbuseCOPDScreening for diabetes mellitusScreening for thyroid disordersScreening for lipid disordersBipolar disorder, unspecifiedBipolar disorder, unspecifiedADHD 5 Corey Alarcon. [address] [place] [address], [address], . tel:[phone] Referring Provider: Agnes Nicole, [address] [place] [address], [facility]. tel:[phone] Family History Family Member Type Diagnosis Age At Onset Father Problem (finding) Mental illness Maternal grandmother Problem (finding) Breast cancer Maternal aunt Problem (finding) Colon Cancer (Cause Of ) Payers Payer name Insurance type Covered alliance party ID Lilly li(s) [facility] [id number] Social History Type Description Quantity Date Captured [...] ordered Referral Referred To: Jose Melchor MD [address] [place] [address], [phone] Ordered: Referrals: Psychiatry. Jose Melchor MD. Evaluate [...] 1 year for [employer]. 

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
== END 2025-01-15 13:57 | disposition home or self-care (01) ==
LOC: ANHIMG 13:57
PROVIDERS: PCP Internal Medicine; Visit Provider Internal Medicine
DX: R92.8 Other abnormal and inconclusive findings on diagnostic imaging of breast (principal)
CPT/HCPCS: 77062; 77066; G0279